=== PATIENT | male | born 1980 | race Caucasian/White ===

== ENCOUNTER 2021-01-01 11:59 | Emergency (ER) | payer BC, SELFPAY ==
--- NOTE | ~2021-01-01 | CT_ITS ---
EXAMINATION: CT abdomen pelvis w con EXAM DATE: 01/01/2021 15:10 INDICATION: Low abdominal pain, dark stool. TECHNIQUE: Spiral CT of the abdomen and pelvis was performed following intravenous injection of 100 m L Omnipaque 350. Axial, coronal and sagittal images of the abdomen and pelvis were reviewed. The do se-length product (DLP) for this examination was 366.73 mGy-cm. The exposure was tailored according to patient size (auto mA exposure control), and iterative reconstruction (ASIR) was used as additiona l dose reduction technique. Comparison is made to prior examination from 07/23/2018. FINDINGS: The liver, spleen, adrenal glands and pancreas are unremarkable. Gallbladder is unremarkab le. No biliary obstruction. Portal and splenic veins are patent. Kidneys enhance symmetrically. T here is no hydronephrosis. The prostate is unremarkable. The bladder is unremarkable. There is no retroperitoneal or pelvic lymphadenopathy. Mild scattered colonic diverticulosis. There is mild inflammation along the rectosigmoid junction, pr obably mild acute uncomplicated diverticulitis. Possible identification of an unremarkable appendix. No pericecal inflammation. The stomach and small bowel are unremarkable. There is expected amount o f colonic stool. No free intraperitoneal gas. The heart is normal in size. There are no pericard ial or pleural effusions. The lung bases are unremarkable. There are no osteoblastic or osteolytic lesions identified. IMPRESSION: 1. Perirectal sigmoid inflammation, probably mild acute uncomplicated diverticulitis. Reviewed, dictated and finalized at location A. IMPRESSION: 1. Perirectal sigmoid inflammation, probably mild acute uncomplicated divertic ulitis.
[2021-01-01 13:41] VITALS: BP 122/78; PULSE 69; RESP 16; TEMP 36.6; O2SAT 100
[2021-01-01 14:09] LABS: Basophils Percent Auto 0.4 % (0.2-1.2); Eosinophils Absolute Auto 0.1 K/mm3 (0-0.3); Eosinophils Percent Auto 1.3 % (0-4.4); Hematocrit 42.5 % (42.0-52.0); Immature Granulocyte Absolute 0.03 K/mm3 (0.00-0.031); Immature Granulocyte Percent A 0.4 % (0-0.5); Lymphocytes Absolute Auto 1.63 K/mm3 (0.9-3.2); Lymphocytes Percent Auto 24.3 % (18.3-44.2); Mean Corpuscular HGB Conc 35.3 g/dl (32-36); Mean Corpuscular Hemoglobin 29.6 pg (26-34); Mean Platelet Volume 9.6 fl (7.4-10.4); Monocytes Absolute Auto 0.7 K/mm3 (0.1-0.6); Monocytes Percent Auto 10.1 % (2.6-8.5); Neutrophils Absolute Auto 4.3 K/mm3 (1.3-6.7); Neutrophils Percent Auto 63.5 % (45.5-73.1); Platelet Count Result 278 k/mm3 (150-375); Red Blood Count 5.06 M/mm3 (4.6-6.20); White Blood Count 6.7 K/mm3 (4.5-10.0)
[2021-01-01 14:19] LABS: Alanine Aminotransferase 29 U/L (4-50); Albumin Level 4.6 g/dL (3.5-5.1); Alkaline Phosphatase 82 U/L (38-126); Anion Gap 10 mmol/L (8-16); Aspartate Amino Transferase 27 U/L (17-59); Bilirubin,Total 1.1 mg/dL (0.2-1.3); Blood Urea Nitrogen 12 mg/dL (9-20); Calcium 9.7 mg/dL (8.4-10.2); Carbon Dioxide 24 mmol/L (22-30); Chloride 104 mmol/L (98-107); Estimated CRCL calculation 100 ml/min; Estimated Glomerular Filt Rate > 60; Glucose 103 mg/dL (75-110); INR 0.9; Lipase 37 U/L (23-300); Partial Thromboplastin Time 29.3 SECONDS (22.3-36.8); Potassium 4.2 mmol/L (3.4-5.0); Prothrombin Time 12.4 Seconds (11.1-14.7); Sodium 138 mmol/L (137-145)
[2021-01-01 14:22] VITALS: BP 125/90; PULSE 70; RESP 16; O2SAT 99
[2021-01-01 14:47] LABS: Add Urine Microscopic? NO; Appearance Urine Clear (Clear); Bilirubin Urine Negative (Negative); Blood Urine Negative (Negative); Color Urine Yellow (Yellow); Glucose Urine UA Negative (Negative); Ketones Urine Negative (Negative); Leukocyte Esterase Ur Negative LEU/UL (Negative); Nitrate Urine Negative (Negative); Protein Urine Negative (Negative); Specific Grav Ur 1.019 (1.001-1.035); Urobilinogen Urine Negative mg/dL (<2.0)
--- NOTE | 2021-01-01 14:55 | ED.GENADULT ---
HPI - General Adult General Chief complaint: GI Bleed Stated complaint: Abd Pain Time Seen by Provider: 01/01/21 14:11 Source: patient History of Present Illness HPI narrative: Patient is a 40 y/o complaining of lower abdominal pain starting 2 days ago. He describes his pain as sharp and cramping and rates it as 7/10. There is no alleviating or exacerbating factor. There is no pain radiation. He has no vomiting, diarrhea or dysuria. Related Data Home Medications Medication Instructions Recorded Confirmed rosuvastatin 20 mg PO DAILY 06/27/19 06/27/19 zolpidem [Ambien] 10 mg PO HS PRN 06/27/19 06/27/19 buspirone [BuSpar] 5 mg PO TID 01/01/21 Allergies Allergy/AdvReac Type Severity Reaction Status Date / Time No Known Allergies Allergy Verified 01/01/21 14:16 Review of Systems Review of Systems: All systems reviewed & are unremarkable except as noted in HPI and below Constitutional: Constitutional: Denies chills, Denies fever(s), Denies headache(s) and Denies weakness Eyes: Eyes: Denies blurry vision ENT: Denies headache(s) and Denies neck pain Cardiovascular: Cardiovascular: Denies chest pain and Denies dyspnea Respiratory: Respiratory: Denies cough and Denies dyspnea Gastrointestinal: Gastrointestinal: Reports abdominal pain, Denies diarrhea, Denies nausea and Denies vomiting Genitourinary: Genitourinary: Denies hematuria and Denies dysuria Musculoskeletal: Musculoskeletal: Denies back pain and Denies neck pain Neurologic: Denies headache(s) and Denies weakness PMFSH Past Medical History Medical History Anxiety Asthma Hyperlipidemia Surgical History Surgical History History of open reduction and internal fixation (ORIF) procedure Right wrist History of shoulder surgery Social History Social History Smoking status: Current every day smoker Alcohol intake: current Gender identity (if verbalized by the patient): Male Exam Const: General: no acute distress and well developed Orientation/consciousness: oriented to person, oriented to place, oriented to time and patient oriented x3 HENMT: Head: normocephalic Ears: external ears normal General nose exam: Normal external nose present Eyes: General: appearance normal, both eyes and all related structures Conjunctivae: conjunctivae normal Neck: Neck: normal visual inspection and full ROM Chest: Chest palpation & inspection: normal inspection of the chest and no tenderness Resp: Effort & Inspection: normal respiratory effort Auscultation: clear to auscultation bilaterally Cardio: Rate: regular rate Rhythm: regular rhythm GI: GI Palp: Yes abdominal tenderness (bilateral lower abdomen) and Yes Soft to palpation Skin: General skin exam: normal color and turgor normal Neuro: General: oriented to person, oriented to place, oriented to time and patient oriented x3 Cognition (Neuro): normal cognition Extrem: General: normal to inspection, full ROM and no pedal edema Psych: Appearance: grossly normal Mental Status: mental status grossly normal Affect: normal affect Course Vital Signs Vital signs: Vital Signs Temperature 36.6 C 01/01/21 13:41 Pulse Rate 69 01/01/21 13:41 Respiratory Rate 16 01/01/21 13:41 Blood Pressure 122/78 01/01/21 13:41 Pulse Oximetry 100 01/01/21 13:41 Temperature 36.6 C 01/01/21 13:41 Pulse Rate 70 01/01/21 14:22 Respiratory Rate 16 01/01/21 14:22 Blood Pressure 125/90 01/01/21 14:22 Pulse Oximetry 99 01/01/21 14:22 Medical Decision Making Vital Signs Vital Signs: Vital Signs Temperature 36.6 C 01/01/21 13:41 Pulse Rate 69 01/01/21 13:41 Respiratory Rate 16 01/01/21 13:41 Blood Pressure 122/78 01/01/21 13:41 Pulse Oximetry 100 01/01/21 13:41 Temperature 36.6 C 01/01/21 13:41 Pu
[2021-01-01] MEDS: metroNIDAZOLE 250 MG TABLET 500 MG PO (18:17)
[2021-01-01] MEDS: CIPROFLOXACIN 500 MG TAB PO (18:18)
--- NOTE | 2021-01-01 18:19 | PC.NURSE ---
1st dose of antibiotics given per home scripts due to pt being unable to fill prescriptions [facility]
== END 2021-01-01 18:19 | disposition home or self-care (01) ==
PROVIDERS: Emergency Provider Emergency Medicine; PCP Internal Medicine
DX: K57.92 Diverticulitis of intestine, part unspecified, without perforation or abscess without bleeding (principal); F41.9 Anxiety disorder, unspecified; J45.909 Unspecified asthma, uncomplicated; F17.200 Nicotine dependence, unspecified, uncomplicated
CPT/HCPCS: 36415; 74177; 80053; 81003; 83690; 85025; 85610; 85730; 86850; 86900; 86901; 99284; A9270; Q9967

== ENCOUNTER → 2021-12-04 00:30 | Outpatient (CLI) | payer BC, SELFPAY ==
[2021-12-04 11:03] LABS: SARS-CoV-2 RNA PCR Negative
== END ==
PROVIDERS: PCP Internal Medicine; Visit Provider Internal Medicine
DX: Z20.822 Contact with and (suspected) exposure to COVID-19 (principal)
CPT/HCPCS: C9803; U0003; U0005

== ENCOUNTER 2022-03-18 14:22 | Emergency (ER) | payer BC, SELFPAY ==
--- NOTE | ~2022-03-18 | XR_ITS ---
EXAMINATION: XR chest 2V Exam Date/Time: 03/18/2022 15:09 CDT HISTORY: LEFT SIDED CP SINCE 1 AM HX ASTHMA/ANXIETY Comparison: 10/25/2010. RESULT: Lines, tubes, and devices: None. Lungs and pleura: Clear. Cardiomediastinal silhouette: Stable. Other: No acute osseous or upper abdominal finding. IMPRESSION: No acute cardiopulmonary process. Reviewed, dictated and finalized at location K.
--- NOTE | 2022-03-18 14:25 | ECG_ITS ---
Measurements Intervals [place] Rate: 77 P: 38 [place]: 137 QRS: 14 QRSD: 94 T: 24 QT: 346 QTc: 392 Interpretive Statements SINUS RHYTHM WITH SINUS ARRHYTHMIA NORMAL ECG NO PREVIOUS ECG AVAILABLE FOR COMPARISON Electronically Signed On 03-18-2022 16:55:38 CDT by Joe Davenport D.O.
[2022-03-18 14:26] VITALS: BP 128/85; PULSE 80; RESP 18; TEMP 36.8; O2SAT 98
[2022-03-18 14:47] LABS: Basophils Percent Auto 0.6 % (0.2-1.2); Eosinophils Absolute Auto 0.1 K/mm3 (0-0.3); Eosinophils Percent Auto 2.6 % (0-4.4); Hematocrit 43.8 % (42.0-52.0); Hemoglobin 15.2 g/dL (14.0-18.0); Immature Granulocyte Absolute 0.04 K/mm3 (0.00-0.031); Immature Granulocyte Percent A 0.8 % (0-0.5); Lymphocytes Absolute Auto 1.63 K/mm3 (0.9-3.2); Lymphocytes Percent Auto 32.9 % (18.3-44.2); Mean Corpuscular HGB Conc 34.7 g/dl (32-36); Mean Corpuscular Volume 86.4 fl (80-100); Mean Platelet Volume 9.5 fl (7.4-10.4); Monocytes Absolute Auto 0.5 K/mm3 (0.1-0.6); Monocytes Percent Auto 9.5 % (2.6-8.5); Neutrophils Absolute Auto 2.7 K/mm3 (1.3-6.7); Neutrophils Percent Auto 53.6 % (45.5-73.1); Platelet Count Result 254 k/mm3 (150-375); Red Blood Count 5.07 M/mm3 (4.6-6.20); Red Cell Distribution Width 12.1 % (11.5-14.5)
[2022-03-18 15:04] LABS: INR 0.9; Prothrombin Time 12.2 Seconds (11.1-14.7)
[2022-03-18 15:05] LABS: Partial Thromboplastin Time 28.2 SECONDS (22.3-36.8)
[2022-03-18 15:20] LABS: Alanine Aminotransferase 24 U/L (6-50); Albumin Level 4.6 g/dL (3.5-5.1); Alkaline Phosphatase 97 U/L (38-126); Anion Gap 14 mmol/L (8-16); Aspartate Amino Transferase 21 U/L (17-59); Bilirubin,Total 0.5 mg/dL (0.2-1.3); Blood Urea Nitrogen 15 mg/dL (9-20); Calcium 8.9 mg/dL (8.4-10.2); Carbon Dioxide 23 mmol/L (22-30); Chloride 103 mmol/L (98-107); Estimated CRCL calculation 99 ml/min; Estimated Glomerular Filt Rate > 60; Glucose 108 mg/dL (65-110); Lipase 61 U/L (23-300); Potassium 4.1 mmol/L (3.4-5.0); Sodium 140 mmol/L (137-145)
[2022-03-18 15:23] LABS: Troponin I < 0.012 ng/mL (0.000-0.034)
--- NOTE | 2022-03-18 17:51 | ED.CHESTPAIN ---
HPI - Chest Pain General Chief Complaint: Chest Pain Stated Complaint: chest pain Time Seen by Provider: 03/18/22 17:32 Source: RN notes reviewed History of Present Illness HPI narrative: Patient presents emergency room from home for chest pain. Patient states pain began approximately 1 AM this morning while he is working the pain is located in the left lower chest and does not radiate described as sharp and stabbing in nature nothing makes pain better or worse. He denies any fevers or chills shortness of breath abdominal pain nausea vomiting diarrhea or any other symptoms. States he not take anything for the pain at home Related Data Home Medications Medication Instructions Recorded Confirmed trazodone 50 mg tablet mg 03/18/22 zolpidem 10 mg tablet mg 03/18/22 Allergies Allergy/AdvReac Type Severity Reaction Status Date / Time No Known Allergies Allergy Verified 03/18/22 19:05 Review of Systems Review of Systems: Gen.: Denies fevers or chills ENT: Denies congestion Respiratory: Denies shortness of breath or cough CV: See HPI GI: Denies abdominal pain nausea, emesis or diarrhea Musculoskeletal: Denies back pain or muscle pain Neuro: Denies numbness, tingling, weakness or focal weakness Skin: Denies rash Except as documented, all other systems reviewed and negative PMFSH Past Medical History Medical History Anxiety Asthma Hyperlipidemia Surgical History Surgical History History of open reduction and internal fixation (ORIF) procedure Right wrist History of shoulder surgery Social History Social History Smoking status: Current every day smoker Alcohol intake: current Gender identity (if verbalized by the patient): Male Exam Narrative: APPEARANCE: No acute distress, nontoxic, resting in bed EYES: EOMI HEENT: Normocephalic, atraumatic, OMM RESPIRATORY: No respiratory distress Clear to auscultation bilaterally with no rhonchi wheezing or rales. CARDIOVASCULAR: Regular rate and rhythm without murmurs rubs or gallops. Chest: Tender to palpation with point tenderness over the left lower anterior chest wall just to the left of the sternum and regions of ribs 7 and 8 ABDOMINAL: Soft, nontender, nondistended, no rebound or guarding MUSCULOSKELETAl: Moves all extremities. No clubbing, cyanosis or edema. NEURO: Awake and alert. Following commands, speech normal, no focal deficits SKIN:: Warm, dry. No rashes lesions or abrasions PSYCHIATRIC: Normal affect/mood, Course Course Emergency Course: Patient given Toradol with some improvement of pain and given GI cocktail notes improvement in pain. Patient did state that he did feel mildly short of breath after GI cocktail and he has a history of asthma given breathing treatment lungs clear to station bilaterally Discussed with patient results of workup and diagnosis. Discussed need for follow-up with primary care, proper use of medication, and reasons to return to the emergency department. Patient understands and agrees to current treatment plan Vital Signs Vital signs: Vital Signs Temperature 98.2 F 03/18/22 14:26 Pulse Rate 80 03/18/22 14:26 Respiratory Rate 18 03/18/22 14:26 Blood Pressure 128/85 03/18/22 14:26 Pulse Oximetry 98 03/18/22 14:26 Oxygen Delivery Room Air 03/18/22 14:26 Temperature 98.2 F 03/18/22 14:26 Pulse Rate 78 03/18/22 19:59 Respiratory Rate 18 03/18/22 19:59 Blood Pressure 124/85 03/18/22 18:01 Pulse Oximetry 99 03/18/22 18:01 Oxygen Delivery Room Air 03/18/22 14:26 MDM - Chest Pain MDM Narrative Medical decision making narrative: Patient's EKGs and labs are without significant high risk changes. Cardiac risk factors reviewed. Patient is felt likely low risk for ACS and reasonable for further risk stratification testing
[2022-03-18 18:01] VITALS: BP 124/85; PULSE 67; RESP 19; O2SAT 99
[2022-03-18] MEDS: KETOROLAC 30 MG/ML VIAL (*BKC) IV PUSH (18:05)
[2022-03-18 18:18] LABS: D Dimer < 0.27 ug/mL (<0.48)
[2022-03-18 18:40] LABS: Troponin I < 0.012 ng/mL (0.000-0.034)
[2022-03-18] MEDS: IPRATROPIUM BR 0.02% INH SOLN 0.5 MG/2.5 ML VIAL INHALATION (19:48)
[2022-03-18] MEDS: ALBUTEROL SULFATE NEB 2.5 MG/3 ML INH 5 MG INHALATION (19:48)
[2022-03-18 19:49] VITALS: PULSE 67; RESP 17
[2022-03-18 19:59] VITALS: PULSE 78; RESP 18
[2022-03-18 20:45] VITALS: BP 115/79; PULSE 73; RESP 15; O2SAT 100
== END 2022-03-18 20:58 | disposition home or self-care (01) ==
PROVIDERS: Emergency Provider Emergency Medicine; PCP Internal Medicine
DX: R07.89 Other chest pain (principal); J45.909 Unspecified asthma, uncomplicated; E78.5 Hyperlipidemia, unspecified; F41.9 Anxiety disorder, unspecified; F17.200 Nicotine dependence, unspecified, uncomplicated
CPT/HCPCS: 36415; 71046; 80053; 83690; 84484; 85025; 85380; 85610; 85730; 93005; 94640; 96374; 99284; A9270; J1885

== ENCOUNTER 2024-09-07 10:46 | Outpatient (CLI) | payer BC, SELFPAY ==
--- NOTE | ~2024-09-07 | US_ITS ---
EXAMINATION: US retroperitoneal comp DATE: 09/07/2024 11:02 INDICATION: Chronic kidney disease, stage 1 TECHNIQUE: Multiple grayscale and Doppler ultrasound images of the kidneys were obtained. COMPARISON: 05/03/2024 FINDINGS: The right kidney measures 11.2 x 6.2 x 7.1 cm. The left kidney measures 11.7 x 6.0 x 6.7 cm. The kidn eys demonstrate normal parenchymal echogenicity. No mass. There is no hydronephrosis. The bladder is normal. IMPRESSION: Unremarkable renal sonogram findings. Reviewed, dictated and finalized at location K.
== END 2024-09-07 10:47 | disposition home or self-care (01) ==
LOC: MICIMG 10:46
PROVIDERS: PCP Internal Medicine; Visit Provider Specialist
DX: N18.1 Chronic kidney disease, stage 1 (principal)
CPT/HCPCS: 76770

== ENCOUNTER 2024-09-08 12:35 | Emergency (ER) | payer BC, SELFPAY ==
--- NOTE | ~2024-09-08 | XR_ITS ---
EXAMINATION: XR chest 1V portable DATE: 09/08/2024 13:57 INDICATION: Right upper quadrant abdominal pain. TECHNIQUE: A single frontal view of the chest was obtained. COMPARISON: Chest 2 views 03/18/2022 FINDINGS: There is no pneumonia, pleural effusion, or pneumothorax. The heart size is normal. IMPRESSION: 1. No acute cardiopulmonary disease. Reviewed, dictated and finalized at location B.
--- NOTE | ~2024-09-08 | CT_ITS ---
EXAMINATION: CT abdomen pelvis w con DATE: 09/08/2024 14:22 INDICATION: Right upper quadrant abdominal pain. TECHNIQUE: Computed tomography (CT) of the abdomen and pelvis was performed with 100 mL Omnipaque 350 intravenous contrast. Automated exposure control and iterative reconstruction technique were employe d. The dose-length product was 370.30 mGy-cm. COMPARISON: CT abdomen and pelvis 05/03/2024 FINDINGS: The visualized portions of the lung bases demonstrate mild atelectasis. No pleural effusion . The heart size is normal. No pericardial effusion. The liver, gallbladder, spleen, pancreas, adrena l glands, and kidneys are normal. There are no dilated loops of bowel. The appendix is normal. There are no pathologically enlarged lymph nodes. There is no free intraperitoneal fluid. There is mild tho racic and lumbar spondylosis. IMPRESSION: 1. No etiology for the patient's symptoms. Reviewed, dictated and finalized at location B.
[2024-09-08 12:41] VITALS: BP 121/81; PULSE 76; RESP 18; TEMP 36.2; O2SAT 97
--- NOTE | 2024-09-08 13:41 | ECG_ITS ---
Test Date: 2024-09-08 13:50:14 Measurements Intervals [place] Rate: 62 P: 40 [place]: 147 QRS: 14 QRSD: 93 T: 17 QT: 375 QTc: 382 Interpretive Statements SINUS RHYTHM No previous ECG available for comparison Electronically Signed On 09-08-2024 13:54:00 CDT by Janki Jenkins M.D.
[2024-09-08] MEDS: SODIUM CHLORIDE 0.9% IV 1,000 ML 999 ML IV CONT (13:51)
--- OUTSIDE RECORDS SUMMARY | 2024-09-08 13:51 | XMS_ITS | Patient Health Summary ---
Author Organization [facility] Address [address] [address] Care Team Providers Care Professor Computer Science Name Role Phone Justino Dye MD Primary Care Provider Note from [facility],non-owned Affiliates and Associated Physician Practices is amultiple site organization consisting of ambulatory clinics and hospital sitesin [place], [place], [place] and [place]. This disclosure is being madepursuant to the Care Everywhere program and may not contain all information available regarding this patient. Last updated 18.[facility] Allergies No known active allergies Medications * Be aware that medications may not be up to date on this document. Alwaysverify current medications with the patient. * benzonatate (TESSALON) 100 MG capsule(Started 08/06/2017) Take 1 capsule by mouth 3 times daily as needed for Cough Reasons: Cough * Albuterol Sulfate (PROAIR HFA IN) Social History Tobacco Use Types Packs/Day Years Used Date Smoking Tobacco: Never Smokeless Tobacco: Never Sex and Gender Information Value Date Recorded Sex Assigned at Not on file Gender Identity Not on file Sexual Orientation Not on file Last Filed Vital Signs Vital Sign Reading Time Taken Comments Blood Pressure 136/78 08/06/2017 12:04 PM NUCLEAR WASTE PROCESS OPERATOR Pulse 118 08/06/2017 12:04 PM NUCLEAR WASTE PROCESS OPERATOR Temperature 38.1 C (100.5 F) 08/06/2017 12:04 PM NUCLEAR WASTE PROCESS OPERATOR Respiratory Rate 18 08/06/2017 12:04 PM NUCLEAR WASTE PROCESS OPERATOR Oxygen Saturation 96% 08/06/2017 12:04 PM NUCLEAR WASTE PROCESS OPERATOR Inhaled Oxygen Concentration - - Weight 68 kg (150 lb) 08/06/2017 12:04 PM NUCLEAR WASTE PROCESS OPERATOR Height 170.2 cm (5' 7 ) 08/06/2017 12:04 PM NUCLEAR WASTE PROCESS OPERATOR Body Mass Index 23.49 08/06/2017 12:04 PM NUCLEAR WASTE PROCESS OPERATOR Procedures * INFLUENZA A+B - POINT OF CARE (AMB)(Performed 08/06/2017) Performed for Influenza Results * (ABNORMAL) INFLUENZA A+B - POINT OF CARE (AMB) (08/06/2017) Influenza A Antigen Rapid Negative Negative Influenza B Antigen Rapid Positive(A) Negative Influenza Internal Control yes NEGATIVE - POSITIVE Influenza Lot Number [id number] Influenza Expiration Date 04/21/19 Other NASOPHARYNGEAL SWAB / Unknown 08/06/2017 Stephanie Mcgrath ELECTRIC FURNACE OPERATOR-TUNNEL ELASTIC OPERATOR [facility] - POINT OF CA RE ORDERABLES Care Teams Professor Computer Science Relationship Specialty Start Date End Date Justino Dye MD [address] [address] PCP - General Internal Medicine 08/06/17
--- OUTSIDE RECORDS SUMMARY | 2024-09-08 13:52 | XMS_ITS | Clinical Summary ---
Author Organization [facility] Address [address] [place] [address] Care Team Providers Care Traffic Analysis Technician Name Role Phone Justino Dye MD Primary Care Provider Source Comments [facility],non-owned Affiliates and Associated Physician Practices is amultiple site organization consisting of ambulatory clinics and hospital sitesin [place], [place], [place] and [place]. This disclosure is being madepursuant to the Care Everywhere program and may not contain all information available regarding this patient. Last updated 18.[facility] Allergies No known active allergies Medications * Be aware that medications may not be up to date on this document. Alwaysverify current medications with the patient. Medication Sig Dispensed Refills Start Date End Date Status benzonatate (TESSALON) 100 MG capsuleIndications:C ough Take 1 capsule by mouth 3 times daily as needed for Cough Reasons: Cough 30 capsule 08/06/2017 Active Albuterol Sulfate (PROAIR HFA IN) Active Social History Tobacco Use Types Packs/Day Years Used Date Smoking Tobacco: Never Smokeless Tobacco: Never Sex and Gender Information Value Date Recorded Sex Assigned at Not on file Gender Identity Not on file Sexual Orientation Not on file Last Filed Vital Signs Vital Sign Reading Time Taken Comments Blood Pressure 136/78 08/06/2017 12:04 PM PROFESSOR OF FINANCE Pulse 118 08/06/2017 12:04 PM PROFESSOR OF FINANCE Temperature 38.1 C (100.5 F) 08/06/2017 12:04 PM PROFESSOR OF FINANCE Respiratory Rate 18 08/06/2017 12:04 PM PROFESSOR OF FINANCE Oxygen Saturation 96% 08/06/2017 12:04 PM PROFESSOR OF FINANCE Inhaled Oxygen Concentration - - Weight 68 kg (150 lb) 08/06/2017 12:04 PM PROFESSOR OF FINANCE Height 170.2 cm (5' 7 ) 08/06/2017 12:04 PM PROFESSOR OF FINANCE Body Mass Index 23.49 08/06/2017 12:04 PM PROFESSOR OF FINANCE Plan of Treatment Health Maintenance Due Date Last Done Comments LIPID TESTING 1980 HIV SCREENING 09/20/1995 HEPATITIS C SCREENING 09/15/1998 DTAP/TDAP/TD VACCINES (1 - Tdap) 09/20/1999 HEPATITIS B VACCINE (1 of 3 - 19+ 3-dose series) 09/20/1999 COVID-19 VACCINE (1 - 2023-2 5 season) 2024 INFLUENZA VACCINE (#1) 2024 DEPRESSION SCREENING 06/30/2024 ZOSTER VACCINE (1 of 2) 2030 HIB VACCINE Aged Out No longer eligi ble based on patient's age to complete this topic HPV VACCINE Aged Out No longer eligi ble based on patient's age to complete this topic MENINGOCOCCAL (Group B) VACC INE SHARED DECISION-MAKING Aged Out No longer eligibl e based on patient's age to complete this topic MENINGOCOCCAL GROUPS A/C/Y/W VACCINE Aged Out No longer eligible b ased on patient's age to complete this topic PNEUMOCOCCAL VACCINE Aged Out No long er eligible based on patient's age to complete this topic Care Teams Traffic Analysis Technician Relationship Specialty Start Date End Date Justino Dye MD [address] [facility] [address] [place] [address] PCP - General Internal Medicine 08/06/17
--- OUTSIDE RECORDS SUMMARY | 2024-09-08 13:52 | XMS_ITS | Patient Health Record ---
Author Organization [facility] Address [address] [place] [address] Care Team Providers Care Parking Meter Attendant Name Role Phone Radu Juan Diego Unavailable [phone] REASON FOR REFERRAL No Information PROBLEMS Problem Type ICD Code Onset Dates Problem Status W/U Status Risk SNOMED Code Notes Problem Hyperlipidemia, unspecified (E78.5) Active confirmed Hyperlipidemia (37883528) Problem Obstructive sleep apnea (adult) (pediatric) (G47.33) Active confirmed Obstructive sle ep apnea syndrome (disorder) (30197841) Problem Chronic kidney disease, stage 1 (N18.1) Active confirmed Chronic kidney disease stage 1 (317308659) Problem Hyperglycemia, unspecified (R73.9) Active confirmed Hyperglycemia (05493368) Problem Other proteinuria (R80.8) Active confirmed Proteinuria (06452174) Problem Asthma due to environmental allergies (J45.909) Active confirmed Asthma without status asthmaticus (25192395) Encounters Encounter Location Date Provider Diagnosis [facility] [address] [facility] [address] [place] [address] 08/27/2024 Juan Diego Lovelace Chronic kidney disease, stage 1 N18.1 ; Obstructive sleep apnea (adult) (pediatric) G47.33 ; Other proteinuria R80.8 ; Hyperlipidemia, unspecified E78.5 ; Hyperglycemia, unspecified R73.9 and Asthma due to environmental allergies J45.909 ASSESSMENTS Encounter Date Diagnosis Assessment Notes Treatment Notes Treatment Clinical Notes Section Notes 08/27/2024 Chronic kidney disease, stage 1 (ICD-10 - N18.1) 08/27/2024 Obstructive sleep apnea (adult) (pediatric) (ICD-10 - G47.33) 08/27/2024 Other proteinuria (ICD-10 - R80.8) 08/27/2024 Hyperlipidemia, unspecified (ICD-10 - E78.5) 08/27/2024 Hyperglycemia, unspecified (ICD-10 - R73.9) 08/27/2024 Asthma due to environmental allergies (ICD-10 - J45.909) PLAN OF TREATMENT Next Appt Details Provider Name:Juan Diego Lovelace , 09/17/2024 03:30:00 PM, [address], [facility] [address], [place], [address],
--- OUTSIDE RECORDS SUMMARY | 2024-09-08 13:52 | XMS_ITS | Referral Summary ---
Author Organization [facility] Address [address] [facility] [place] [address] Care Team Providers Care Web Art Director Name Role Phone Justino Dye MD Primary Care Provider Source Comments [facility],non-owned Affiliates and Associated Physician Practices is amultiple site organization consisting of ambulatory clinics and hospital sitesin [place], [place], [place]. This disclosure is being madepursuant to the Care Everywhere program and may not contain all information available regarding this patient. Last updated 18.[facility] Allergies No known active allergies Medications * [...] Comments Blood Pressure 136/78 08/06/2017 12:04 PM ROD MACHINE OPERATOR Pulse 118 08/06/2017 12:04 PM ROD MACHINE OPERATOR Temperature 38.1 C (100.5 F) 08/06/2017 12:04 PM ROD MACHINE OPERATOR Respiratory Rate 18 08/06/2017 12:04 PM ROD MACHINE OPERATOR Oxygen Saturation 96% 08/06/2017 12:04 PM ROD MACHINE OPERATOR Inhaled Oxygen Concentration - - Weight 68 kg (150 lb) 08/06/2017 12:04 PM ROD MACHINE OPERATOR Height 170.2 cm (5' 7 ) 08/06/2017 12:04 PM ROD MACHINE OPERATOR Body Mass Index 23.49 08/06/2017 12:04 PM ROD MACHINE OPERATOR Plan of Treatment Not on file Care Teams Web Art Director Relationship Specialty Start Date End Date Justino Dye MD [address] [facility] [address] [place] [address] PCP - General Internal Medicine 08/06/17
--- OUTSIDE RECORDS SUMMARY | 2024-09-08 13:52 | XMS_ITS | Data Portability ---
Author Organization [place] - [facility] [employer], Main Office Address [address] [place] [address] Care Team Providers Care Pot Sander Name Role Phone JUSTINO DYE Primary Care Provider [phone] JUSTINO DYE Referring Provider Assessment Encounter Date Assessment Date Assessment LastModified by Organization Details LastModified Time 07/02/2023 07/02/2023 08/07/2022: TSH: WNL CMP: Gluc 106 CBC: WNL 02/06/2023: Gluc 103 06/13/2023: GEORGE: Neg ccp antibodies/ESR/RF/ CRP: Neg A1C 5.3 Gluc 107 Lipids/CBC: WNL Not available 07/02/2023 16:48:15 09/08/2023 09/08/2023 Assessment: Mild persistent asthma Mild OSAHS, AHI = 13 Plan: The following were reviewed and explained to the patient: Chest 2 views 07/20/21 wnl Chest 2 views 03/18/22 wnl Lab data 09/19/22 multiple environmental allergies PFT 10/15/22 FEV1 3.11 L (89%), BD 550 mL = 22% [facility] home sleep study 02/03/23 AHI = 13, 02/03/23 Advised to continue not to smoke. General information on bronchial asthma was covered. Patient will monitor peak flow daily at a set time and again when symptoms of chest tightness, cough, dyspnea or wheezing occur. Patient will bring peak flow record to subsequent visits. The color of a traffic light will guide the patient's use of asthma medications: (1) Green means Go Zone. Peak flow: above 80% of personal best. Symptoms: Breathing is good, no cough or wheeze present, patient sleeps through the night and can work and play. Plan: Patient will continue the use of preventative medicine. (2) Yellow means Caution Zone. Peak flow: between 50-80% of personal best. Symptoms: Presence of first signs of a cold, exposure to known trigger, mild wheeze, tight chest and coughing especially night. Plan: Patient will add quick-relief medicine to preventative medicine. (3) Red means Danger Zone. Peak flow: below 50% of personal best. Symptoms: Asthma is getting worse quickly and medicine is not helping, breathing is hard and fast, nose opens widely when breathing, ribs showing when breathing, and patient cannot speak in full sentences. Plan: Patient will get help from a physician immediately. Continue Breo Ellipta 100/25 mcg 1 inhalation daily. Gargle after use. Continue Albuterol HFA as needed. The patient does not know how to accurately administer the inhalers. Today, the patient was shown how to take these medications. The proper technique for delivering these medications was instructed. The patient expressed a clear understanding and demonstrated back how to use these medications. Without the proper technique, the patient will not reap the benefits of these medications as the contents will not reach the lower airways as intended to be. Adherence to therapy is advocated. Nonadherence may lead to treatment failure, further progression of the condition, and other complications. Hospitals admissions are often the result of individuals not taking prescription medications accurately. Alternatively, greater adherence to medication regimens have shown to lower rates of hospitalization and decrease total medical costs in patients with chronic medical conditions. We discussed with the patient the impact of weight on: Sleep disordered breathing Mixed hyperlipidemia MERVIN We discussed with the patient the benefit of therapy on: Sleep disordered breathing Mood disorders Rhinitis MERVIN As an alternative, Mandibular Advancement Device (MAD) or Mandibular Advancement Split (MAS) therapy is discussed. Patient's records will be sent to the specialist of choice. Factors that may negatively impact MAD/MAS candidacy were discussed as follows: history of cancer in head/neck/mouth, history of radiation treatment, gum disease, use of dentures, presence of eight or less teeth in upper and lower jaw, decay or broken teeth/fillings, jaw joint pain or clicking/popping, ear problems such as congestion/tinnitu s/pain/vertigo, neck/back/facial pain, frequent headaches, teeth grinding or teeth clenching, etc. Patient needs to have a sleep study with MAD in place to determine the efficacy of the MAD. Educated the patient on sleep hygiene measures. Relaxing rituals to rest easy, understanding foods with positive and negative impact on sleep, creating a peaceful sleep environment, timing of exercise, using herbal sleep aids, and practicing sleep-friendly meditation were covered. To determine how much sleep is needed, the patient will assess where he falls on the spectrum, examine what lifestyle factors such as work schedules and stress are affecting the quality and quantity of sleep. In general, adults need 7-9 hours of sleep. Educated the patient regarding foods that promote sleep. These include but are not limited to cherries, bananas, toast, oatmeal, and warm milk. Educated the patient regarding foods and drinks to avoid before bedtime. These include but are not limited to aged cheese, chocolate, spicy foods, tomato-based sauces, soy, ginseng tea and processed meat. Advocated influenza vaccination annually and pneumonia vaccination in 2045. Advocated weight loss through diet and exercise. Patient's ideal body weight according to height and gender is up to 160 lbs. Encouraged patient to adjust caloric intake to maintain/achieve ideal body weight, emphasizing on fruits, vegetables, whole grains, and fat-free or low-fat products. These include lean meats, poultry, fish, beans, eggs, and nuts and foods that are low in saturated fats, trans-fats, cholesterol, salt (sodium), and glycemic index. Stressed the importance of regular exercise up to the patient's capacity limits. In this case, we recommend 20 min daily walking, 2 days a week of resistance training. Patient to monitor BP daily and bring records to PCP for further management. Follow-up: 3 months, November 2023 [email or web address] Not available 09/08/2023 15:46:29 12/01/2023 12/01/2023 Assessment: Mild ACO Mild OSAHS, AHI = 13 Plan: The following were reviewed and explained to the patient: Chest 2 views 07/20/21 wnl Chest 2 views 03/18/22 wnl Lab data 09/19/22 multiple environmental allergies PFT 10/15/22 FEV1 3.11 L (89%), BD 550 mL = 22% PFT 12/01/23 FEV1 3.27 L (93%), BD -140 mL = -4% [facility] home sleep study without MAD 02/03/23 AHI = 13 [facility] home sleep study with MAD 10/24/23 AHI = 2, supine AHI = 4 Advised to continue not to smoke. General information on bronchial asthma was covered. Patient will monitor peak flow daily at a set time and again when symptoms of chest tightness, cough, dyspnea or wheezing occur. Patient will bring peak flow record to subsequent visits. The color of a traffic light will guide the patient's use of asthma medications: (1) Green means Go Zone. Peak flow: above 80% of personal best. Symptoms: Breathing is good, no cough or wheeze present, patient sleeps through the night and can work and play. Plan: Patient will continue the use of preventative medicine. (2) Yellow means Caution Zone. Peak flow: between 50-80% of personal best. Symptoms: Presence of first signs of a cold, exposure to known trigger, mild wheeze, tight chest and coughing especially night. Plan: Patient will add quick-relief medicine to preventative medicine. (3) Red means Danger Zone. Peak flow: below 50% of personal best. Symptoms: Asthma is getting worse quickly and medicine is not helping, breathing is hard and fast, nose opens widely when breathing, ribs showing when breathing, and patient cannot speak in full sentences. Plan: Patient will get help from a physician immediately. Continue Breo Ellipta 100/25 mcg 1 inhalation daily. Gargle after use. Continue Albuterol HFA as needed. The patient does not know how to accurately administer the inhalers. Today, the patient was shown how to take these medications. The proper technique for delivering these medications was instructed. The patient expressed a clear understanding and demonstrated back how to use these medications. Without the proper technique, the patient will not reap the benefits of these medications as the contents will not reach the lower airways as intended to be. Adherence to therapy is advocated. Nonadherence may lead to treatment failure, further progression of the condition, and other complications. Hospitals admissions are often the result of individuals not taking prescription medications accurately. Alternatively, greater adherence to medication regimens have shown to lower rates of hospitalization and decrease total medical costs in patients with chronic medical conditions. We discussed with the patient the impact of weight on: Sleep disordered breathing Mixed hyperlipidemia MERVIN We discussed with the patient the benefit of therapy on: Sleep disordered breathing Mood disorders Rhinitis MERVIN Patient will continue with MAD therapy for HERNÁN. Educated the patient on sleep hygiene measures. Relaxing rituals to rest easy, understanding foods with positive and negative impact on sleep, creating a peaceful sleep environment, timing of exercise, using herbal sleep aids, and practicing sleep-friendly meditation were covered. To determine how much sleep is needed, the patient will assess where he falls on the spectrum, examine what lifestyle factors such as work schedules and stress are affecting the quality and quantity of sleep. In general, adults need 7-9 hours of sleep. Educated the patient regarding foods that promote sleep. These include but are not limited to cherries, bananas, toast, oatmeal, and warm milk. Educated the patient regarding foods and drinks to avoid before bedtime. These include but are not limited to aged cheese, chocolate, spicy foods, tomato-based sauces, soy, ginseng tea and processed meat. Advocated influenza vaccination annually and pneumonia vaccination in 2045. Advocated weight loss through diet and exercise. Patient's ideal body weight according to height and gender is up to 160 lbs. Encouraged patient to adjust caloric intake to maintain/achieve ideal body weight, emphasizing on fruits, vegetables, whole grains, and fat-free or low-fat products. These include lean meats, poultry, fish, beans, eggs, and nuts and foods that are low in saturated fats, trans-fats, cholesterol, salt (sodium), and glycemic index. Stressed the importance of regular exercise up to the patient's capacity limits. In this case, we recommend 20 min daily walking, 2 days a week of resistance training. Patient to monitor BP daily and bring records to PCP for further management. Follow-up: 1 year, November 2024 Not available 12/01/2023 16:58:41 01/15/2024 01/15/2024 08/07/2022: TSH: WNL CMP: Gluc 106 CBC: WN 02/06/2023: Gluc 103 06/13/2023: GEORGE: Neg ccp antibodies/ESR/RF/ CRP: Neg A1C 5.3 Gluc 107 Lipids/CBC: WN 01/09/2024: A1C 5.4 Gluc 103 Not available 01/13/2024 11:51:33 08/12/2024 08/12/2024 08/07/2022: TSH: WNL CMP: Gluc 106 CBC: WNL 02/06/2023: Gluc 103 06/13/2023: GEORGE: Neg ccp antibodies/ESR/RF/ CRP: Neg A1C 5.3 Gluc 107 Lipids/CBC: WNL 01/09/2024: A1C 5.4 Gluc 103 08/04/2024: Urine micro alb 17.8 Gluc 106, BUN 20 Not available 08/12/2024 14:46:16 Plan of Treatment Reminders Order Date Submit Date Provider Last Modified By Organization Details Last Modified Time Details Appointments Any 15 2024 10:00A M Cesar Mensah MD Not available Not available Not available Any 15 2024 10:00A M Justino sexton MD Not available Not available Not available Lab microalbu min, urine [address] (Lab), [address] [place], [address], 08/12/2024 14:48:25 glycohemo globin, total, blood [address] (Lab), [address] [place], [address], 08/12/2024 14:48:26 lipid panel, serum [address] (Lab), [address] [place], [address], 08/12/2024 14:48:24 CBC w/ auto diff [address] (Lab), [address] [place], [address], 08/12/2024 14:48:25 CMP, serum or plasma [address] (Lab), [address] [place], [address], 08/12/2024 14:48:25 TSH, serum or plasma [address] (Lab), [address] [place], [address], 08/12/2024 14:48:25 microalbu min, urine [address] (Lab), [address] [place], [address], 07/14/2024 09:58:21 glycohemo globin, total, blood [address] (Lab), [address] [place], [address], 07/14/2024 09:58:22 lipid panel, serum [address] (Lab), [address] [place], [address], 07/14/2024 09:58:21 CBC w/ auto diff [address] (Lab), [address] [place], [address], 07/14/2024 09:58:21 CMP, serum or plasma [address] (Lab), [address] [place], [address], 07/14/2024 09:58:21 TSH, serum or plasma [address] (Lab), [address] [place], [address], 07/14/2024 09:58:21 microalbu min, urine 2023 024 MARITA [facility] (Lab), [address] [place], [address], 01/09/2024 12:42:25 glycohemo globin, total, blood 2023 024 [facility] (Lab), [address] [place], [address], 01/09/2024 13:09:32 lipid panel, serum 2023 024 [facility] (Lab), [address] [place], [address], 01/09/2024 12:34:50 CBC w/ auto diff 2023 024 [facility] (Lab), [address] [place], [address], 01/09/2024 12:09:58 CMP, serum or plasma 2023 024 [facility] (Lab), [address] [place], [address], 01/09/2024 12:34:55 TSH, serum or plasma 2023 024 [facility] (Lab), [address] [place], [address], 01/09/2024 13:14:55 Referral nephrolog ist referral - Please call patient to schedule an appointme nt. Thank you 2024 025 [facility] (Nephrology, [address], [address], [place], [address], 08/19/2024 11:02:54 Procedures None recorded. Surgeries None recorded. Imaging polysomno gram, diagnosti c, 6 yrs or older - diagnosti c with MAD in place; approved [id number] 09/24/23-[address] [place] [address] [facility], [address] [place], [address], 10/15/2023 08:34:59 Medication Orders zolpidem 10 mg tablet 2024 025 [id number], [address], [place], [address], 08/12/2024 14:48:04 albuterol sulfate HFA 90 mcg/actua tion aerosol inhaler 2023 024 [facility]/Pharmacy #[id number], [address], [place], [address], 12/01/2023 12:09:31 Breo Ellipta 100 mcg-25 mcg/dose powder for inhalatio n 2023 024 [facility]/Pharmacy #[id number], [address], [place], [address], 12/01/2023 12:09:32 albuterol sulfate HFA 90 mcg/actua tion aerosol inhaler 2023 024 [facility]/Pharmacy #[id number], [address], [place], [address], 09/08/2023 15:51:07 Breo Ellipta 100 mcg-25 mcg/dose powder for inhalatio n 2023 024 [facility]/Pharmacy #[id number], [address], [place], [address], 09/08/2023 15:51:07 Zyrtec 10 mg tablet 2023 024 chucho [facility]/Pharmacy #[id number], [address], [place], [address], 01/15/2024 11:00:48 zolpidem 10 mg tablet 2023 024 chiquita [facility]/Pharmacy #[id number], [address], [place], [address], 07/02/2023 16:14:37 Patient TargetsNo targets recorded. Patient Instructions Encounter Date Encounter Id Patient Instructions Last Modified By Organization Details Last Modified Time 09/08/2023 [id number] complete PFT w/ post bronchodilator spirometry* - no auth required [email or web address] Not available 11/06/2023 09:00:46 12/01/2023 [id number] complete PFT w/ post bronchodilator spirometry* - no auth required Not available 12/01/2023 12:09:28 08/12/2024 [id number] diabetic eye exam* [email or web address] Not avail able 08/12/2024 14:48:26 Reason for Referral Stars Coordinator Referral for Pr oteinuria Please call patient to schedule an appointment. Thank you Referring Physician: Justino Dye, Internal Medicine, Encounter Date: 08/12/2024 Results Created Date Observation Date Name Description Value Unit Range Abnormal Flag Note LastModifiedBy Organization Detail LastModifiedTime 06/13/2006/13/2023 CBC/C OMPLE TE BLD COUNT W/DIF F white blood cells 4.4 x10'3 /uL 4.2-10 .8 Not Available [facility] (Lab) [address] [place], [address], 06/13/2023 12:37:38 06/13/20 23 06/13/2023 CBC/C OMPLE TE BLD COUNT W/DIF F red blood cells 5.25 x10'6 /uL 4.10-5 .80 Not Available [facility] (Lab) [address] [place], [address], 06/13/2023 12:37:38 06/13/20 23 06/13/2023 CBC/C OMPLE TE BLD COUNT W/DIF F hemoglobin 15.6 g/dL 13.2-1 7.0 Not Available [facility] (Lab) [address] [place], [address], 06/13/2023 12:37:38 06/13/20 23 06/13/2023 CBC/C OMPLE TE BLD COUNT W/DIF F hematocrit 46.1 % 39.3-5 0.0 Not Available [facility] (Lab) [address] [place], [address], 06/13/2023 12:37:38 06/13/20 23 06/13/2023 CBC/C OMPLE TE BLD COUNT W/DIF F mean red cell volume 87.8 fL 80.0-9 7.0 Not Available [facility] (Lab) [address] [place], [address], 06/13/2023 12:37:38 06/13/20 23 06/13/2023 CBC/C OMPLE TE BLD COUNT W/DIF F mean red cell hemoglobin 29.7 pg 27.0-3 3.0 Not Available [facility] (Lab) [address] [place], [address], 06/13/2023 12:37:38 06/13/20 23 06/13/2023 CBC/C OMPLE TE BLD COUNT W/DIF F mean RBC HGB concentratio n 33.8 g/dL 31.0-3 6.0 Not Available [facility] (Lab) [address] [place], [address], 06/13/2023 12:37:38 06/13/20 23 06/13/2023 CBC/C OMPLE TE BLD COUNT W/DIF F red cell distribution width 11.9 % 11.8-1 5.5 Not Available [facility] (Lab) [address] [place], [address], 06/13/2023 12:37:38 06/13/20 23 06/13/2023 CBC/C OMPLE TE BLD COUNT W/DIF F platelets 280 x10'3 /uL 150-40 0 Not Available [facility] (Lab) [address] [place], [address], 06/13/2023 12:37:38 06/13/20 23 06/13/2023 CBC/C OMPLE TE BLD COUNT W/DIF F mean platelet volume 10.2 fL 9.0-12 .4 Not Available [facility] (Lab) [address] [place], [address], 06/13/2023 12:37:38 06/13/20 23 06/13/2023 CBC/C OMPLE TE BLD COUNT W/DIF F neutrophils 57.3 % 39.0-7 2.0 Not Available [facility] (Lab) [address] [place], [address], 06/13/2023 12:37:38 06/13/2006/13/2023 CBC/C OMPLE TE BLD COUNT W/DIF F lymphocytes 31.1 % 16.0-4 7.0 Not Available [facility] (Lab) [address] [place], [address], 06/13/2023 12:37:38 06/13/20 23 06/13/2023 CBC/C OMPLE TE BLD COUNT W/DIF F monocytes 7.9 % 5.0-12 .0 Not Available [facility] (Lab) [address] [place], [address], 06/13/2023 12:37:38 06/13/20 23 06/13/2023 CBC/C OMPLE TE BLD COUNT W/DIF F eosinophils 2.5 % 1.0-7. 0 Not Available [facility] (Lab) [address] [place], [address], 06/13/2023 12:37:38 06/13/20 23 06/13/2023 CBC/C OMPLE TE BLD COUNT W/DIF F basophils 0.7 % 0.0-2. 0 Not Available [facility] (Lab) [address] [place], [address], 06/13/2023 12:37:38 06/13/20 23 06/13/2023 CBC/C OMPLE TE BLD COUNT W/DIF F immature granulocytes 0.5 % 0.00-0 .50 Not Available [facility] (Lab) [address] [place], [address], 06/13/2023 12:37:38 06/13/20 23 06/13/2023 CBC/C OMPLE TE BLD COUNT W/DIF F neutrophils, absolute count 2.55 x10'3 /uL 1.5-8. 0 Not Available [facility] (Lab) [address] [place], [address], 06/13/2023 12:37:38 06/13/20 23 06/13/2023 CBC/C OMPLE TE BLD COUNT W/DIF F lymphocytes, absolute count 1.38 x10'3 /uL 1.07-3 .43 Not Available [facility] (Lab) [address] [place], [address], 06/13/2023 12:37:38 06/13/20 23 06/13/2023 CBC/C OMPLE TE BLD COUNT W/DIF F monocytes, absolute count 0.35 x10'3 /uL 0.29-0 .99 Not Available [facility] (Lab) [address] [place], [address], 06/13/2023 12:37:38 06/13/20 23 06/13/2023 CBC/C OMPLE TE BLD COUNT W/DIF F eosinophils, absolute count 0.11 x10'3 /uL 0.02-0 .53 Not Available [facility] (Lab) [address] [place], [address], 06/13/2023 12:37:38 06/13/20 23 06/13/2023 CBC/C OMPLE TE BLD COUNT W/DIF F basophils, absolute count 0.03 x10'3 /uL 0.01-0 .08 Not Available [facility] (Lab) [address] [place], [address], 06/13/2023 12:37:38 06/13/2006/13/2023 CBC/C OMPLE TE BLD COUNT W/DIF F immature granulocytes ,absolute 0.02 x10'3 /uL 0.00-0 .05 Not Available [facility] (Lab) [address] [place], [address], 06/13/2023 12:37:38 06/13/20 23 06/13/2023 CBC/C OMPLE TE BLD COUNT W/DIF F nucleated red blood cells 0.0 % -0 Not Available [facility] (Lab) [address] [place], [address], 06/13/2023 12:37:38 06/13/20 23 06/13/2023 CBC/C OMPLE TE BLD COUNT W/DIF F NRBC# 0.00 x10'3 /uL Not Available [facility] (Lab) [address] [place], [address], 06/13/2023 12:37:38 06/13/20 23 06/13/2023 LIPID PANEL cholesterol 141 mg/dL 140-19 9 NIH ADRIENNE NSUS RECOM MENDA TION FOR INNA STERO L: ADULT CHILD LOW RISK: <200 <170 BORDE RLINE : <200- 239 ----- HIGH RISK: >240 >200 Not Available [facility] (Lab) [address] [place], [address], 06/13/2023 12:41:58 06/13/20 23 06/13/2023 LIPID PANEL triglyceride s 57 mg/dL 0-150 NIH ADRIENNE NSUS REPOR T RECOM MENDA TION FOR TRIGL YCERI OLEKSANDR: ADULT CHILD LOW RISK: <150 ----- BODER LINE: 150-1 99 ----- HIGH RISK: >200 ----- Not Available [facility] (Lab) [address] [place], [address], 06/13/2023 12:41:58 06/13/20 23 06/13/2023 LIPID PANEL HDL cholesterol 52 mg/dL 40- Not Available [facility] (Lab) [address] [place], [address], 06/13/2023 12:41:58 06/13/20 23 06/13/2023 LIPID PANEL LDL cholesterol, calculated 78 mg/dL 0-130 NIH ADRIENNE NSUS REPOR T RECOM MENDA TIONS FOR LDL: ADULT CHILD LOW RISK <130 <110 (OPTI MAL LDL) <100 ----- BORDE RLINE : 130-1 59 ----- HIGH RISK: >160 >130 A TRIGL YCERI DE RESUL T >400 INVAL IDATE S THE CALCU LATIO N FOR LDL FRACT IONAT ION - THE LDL RESUL T WILL NOT BE REPOR COLTEN. Not Available [facility] (Lab) [address] [place], [address], 06/13/2023 12:41:58 06/13/20 23 06/13/2023 COMPR EHENS BEN METAB OLIC PANEL sodium 140 mmol/ L 137-14 5 Not Available [facility] (Lab) [address] [place], [address], 06/13/2023 12:42:07 06/13/20 23 06/13/2023 COMPR EHENS BEN METAB OLIC PANEL potassium 4.7 mmol/ L 3.5-5. 1 Not Available [facility] (Lab) [address] [place], [address], 06/13/2023 12:42:07 06/13/20 23 06/13/2023 COMPR EHENS BEN METAB OLIC PANEL chloride 106 mmol/ L 98-107 Not Available [facility] (Lab) [address] [place], [address], 06/13/2023 12:42:07 06/13/20 23 06/13/2023 COMPR EHENS BEN METAB OLIC PANEL carbon dioxide 24 mmol/ L 22-30 Not Available [facility] (Lab) [address] [place], [address], 06/13/2023 12:42:07 06/13/20 23 06/13/2023 COMPR EHENS BEN METAB OLIC PANEL anion gap 14.7 mmol/ L 14-22 Not Available [facility] (Lab) [address] [place], [address], 06/13/2023 12:42:07 06/13/20 23 06/13/2023 COMPR EHENS BEN METAB OLIC PANEL glucose 107 mg/dL 70-99 high Not Available [facility] (Lab) [address] [place], [address], 06/13/2023 12:42:07 06/13/20 23 06/13/2023 COMPR EHENS BEN METAB OLIC PANEL BUN 15 mg/dL 8-19 Not Available [facility] (Lab) [address] [place], [address], 06/13/2023 12:42:07 06/13/20 23 06/13/2023 COMPR EHENS BEN METAB OLIC PANEL creatinine 0.79 mg/dL 0.66-1 .25 Not Available [facility] (Lab) [address] [place], [address], 06/13/2023 12:42:07 06/13/2006/13/2023 COMPR EHENS BEN METAB OLIC PANEL GFR >60 Refer ence Range : [place] ge GFR Healt hy Adult : >60 mL/mi n/1.7 3 m2 Chron ic Kidne y Disea se: 15-60 mL/mi n/1.7 3 m2 Kidne y Failu re: <15/m L/min /1.73 m2 www.n iddk. nih.g ov The MDRD study equat ion has not been valid ated in child massiel <18 years of age; pregn ant women ; the elder ly >85 years of age; or in some racia l or ethni c subgr oups, such as Hispa nics. Outsi de the valid ated lena eters , estim ated GFR is less accur ate, requi ring clini sharee judgm ent on a case- by-ca se basis . Clini sharee inter preta tion for other races and ages must be made by the clini manuela. The MDRD study equat ion has not been valid ated for the evalu ation of serum creat inine relat ed to nutri yoana l statu s or medic ation usage . For perso ns <18 years of age, a pedia tric GFR calcu lator is avail able on the [facility] websi te: https :[email or web address] lee.farrukh [email or web address] pranav/pr ofess ional s/kdo qi/gf r_cal culat or Not Available [facility] (Lab) [address] [place], [address], 06/13/2023 12:42:07 06/13/20 23 06/13/2023 COMPR EHENS BEN METAB OLIC PANEL alkaline phosphatase 98 U/L 38-126 Not Available [facility] (Lab) [address] [place], [address], 06/13/2023 12:42:07 06/13/20 23 06/13/2023 COMPR EHENS BEN METAB OLIC PANEL alanine aminotransfe rase 26 U/L 0-50 Not Available [facility] (Lab) [address] [place], [address], 06/13/2023 12:42:07 06/13/20 23 06/13/2023 COMPR EHENS BEN METAB OLIC PANEL aspartate aminotransfe rase 25 U/L 15-46 Not Available [facility] (Lab) [address] [place], [address], 06/13/2023 12:42:07 06/13/20 23 06/13/2023 COMPR EHENS BEN METAB OLIC PANEL bilirubin, total 0.60 mg/dL 0.20-1 .30 Not Available [facility] (Lab) [address] [place], [address], 06/13/2023 12:42:07 06/13/20 23 06/13/2023 COMPR EHENS BEN METAB OLIC PANEL calcium 9.3 mg/dL 8.4-10 .2 Not Available [facility] (Lab) [address] [place], [address], 06/13/2023 12:42:07 06/13/20 23 06/13/2023 COMPR EHENS BEN METAB OLIC PANEL total protein 7.3 g/dL 6.3-8. 2 Not Available [facility] (Lab) [address] [place], [address], 06/13/2023 12:42:07 06/13/20 23 06/13/2023 COMPR EHENS BEN METAB OLIC PANEL albumin 4.4 g/dL 3.4-5. 0 Not Available [facility] (Lab) [address] [place], [address], 06/13/2023 12:42:07 06/13/20 23 06/13/2023 COMPR EHENS BEN METAB OLIC PANEL globulin 2.9 g/dL 2.6-4. 2 Not Available [facility] (Lab) [address] [place], [address], 06/13/2023 12:42:07 06/13/20 23 06/13/2023 COMPR EHENS BEN METAB OLIC PANEL A/G ratio 1.5 ratio 1.0-2. 0 Not Available [facility] (Lab) [address] [place], [address], 06/13/2023 12:42:07 06/13/20 23 06/13/2023 C REACT BEN PROTE IN,UL TRA SENS C-reactive protein 0.11 mg/dL 0.0-0. 5 Not Available [facility] (Lab) [address] [place], [address], 06/13/2023 12:49:37 06/13/20 23 06/13/2023 RHEUM ATOID FACTO R rf <8.6 IU/mL 0.0-11 .9 Not Available [facility] (Lab) [address] [place], [address], 06/13/2023 12:49:38 06/13/20 23 06/13/2023 MICRO ALBUM IN RANDO M URINE microalbumin , urine <6.0 mg/L 0.0-16 .6 Not Available [facility] (Lab) [address] [place], [address], 06/13/2023 12:49:41 06/13/20 23 06/13/2023 HEMOG LOBIN A1C HA1C 5.3 % 4.0-6. 0 Diabe marybel Scree leonard Crite stephanie: <5.7% Consi stent with absen ce of diabe marybel 5.7-6 .4% Consi stent with incre ased risk for diabe marybel (pred iabet es) >OR=6 .5% Consi stent with diabe marybel REFER ENCE: Diabe marybel Care 2015, 39(Lehman ppl.1 ):s13 -s22 Not Available [facility] (Lab) [address] [place], [address], 06/13/2023 13:19:57 06/13/20 23 06/13/2023 TSH W/REF LUCY FT4 TSH with reflex free T4 0.844 uIU/m L 0.465- 4.680 Not Available [facility] (Lab) [address] [place], [address], 06/13/2023 13:22:18 06/13/20 23 06/13/2023 SEDIM ENTAT ION RATE erythrocyte sedimentatio n rate 11 mm/HR 0-20 Not Available [facility] (Lab) [address] [place], [address], 06/13/2023 13:58:48 06/13/20 23 06/14/2023 ANTI- CCP ANTIB ODIES IGG/I GA ccp antibodies IgG/IgA 0 units 0-19 Negat ben <20 Weak posit ben 20 - 39 Moder ate posit ben 40 - 59 Stron g posit ben >59 Perfo rmed at: [facility] [address] [place] [address] Lab Direc tor: Anthony loja PhD, Phone : [phone] Not Available [facility] (Lab) [address] [place] [address], [address], 06/14/2023 14:09:48 06/13/20 23 06/15/2023 GEORGE BY IFA RFX TITER /JOSE A RASHI antinuclear antibodies, ifa Negati ve Negat ben <1:80 Borde rline 1:80 Posit ben >1:80 ICAP nomen jesse re: AC-0 For more infor arvin lao about Hep-2 cell patte rns use ANApa ttern s.org , the offic blaire stearns for the Inter natio nal Conse nsus on Antin uclea r Antib mary (GEORGE) Patte rns (ICAP ). Perfo rmed at: [facility] [address] [place] [address] Lab Direc tor: Anthony loja PhD, Phone : [phone] Not Available [facility] (Lab) [address] [place], [address], 06/15/2023 17:07:56 01/09/20 24 01/09/2024 CBC/C OMPLE TE BLD COUNT W/DIF F white blood cells 5.0 x10'3 /uL 4.2-10 .8 Not Available [facility] (Lab) [address] [place] [address], [address], 01/09/2024 12:09:58 01/09/20 24 01/09/2024 CBC/C OMPLE TE BLD COUNT W/DIF F red blood cells 5.09 x10'6 /uL 4.10-5 .80 Not Available [facility] (Lab) [address] [place], [address], 01/09/2024 12:09:58 01/09/20 24 01/09/2024 CBC/C OMPLE TE BLD COUNT W/DIF F hemoglobin 15.3 g/dL 13.2-1 7.0 Not Available [facility] (Lab) [address] [place], [address], 01/09/2024 12:09:58 01/09/20 24 01/09/2024 CBC/C OMPLE TE BLD COUNT W/DIF F hematocrit 44.1 % 39.3-5 0.0 Not Available [facility] (Lab) [address] [place], [address], 01/09/2024 12:09:58 01/09/20 24 01/09/2024 CBC/C OMPLE TE BLD COUNT W/DIF F mean red cell volume 86.6 fL 80.0-9 7.0 Not Available [facility] (Lab) [address] [place], [address], 01/09/2024 12:09:58 01/09/20 24 01/09/2024 CBC/C OMPLE TE BLD COUNT W/DIF F mean red cell hemoglobin 30.1 pg 27.0-3 3.0 Not Available [facility] (Lab) [address] [place], [address], 01/09/2024 12:09:58 01/09/20 24 01/09/2024 CBC/C OMPLE TE BLD COUNT W/DIF F mean RBC HGB concentratio n 34.7 g/dL 31.0-3 6.0 Not Available [facility] (Lab) [address] [place], [address], 01/09/2024 12:09:58 01/09/20 24 01/09/2024 CBC/C OMPLE TE BLD COUNT W/DIF F red cell distribution width 12.3 % 11.8-1 5.5 Not Available [facility] (Lab) [address] [place], [address], 01/09/2024 12:09:58 01/09/20 24 01/09/2024 CBC/C OMPLE TE BLD COUNT W/DIF F platelets 263 x10'3 /uL 150-40 0 Not Available [facility] (Lab) [address] [place], [address], 01/09/2024 12:09:58 01/09/20 24 01/09/2024 CBC/C OMPLE TE BLD COUNT W/DIF F mean platelet volume 10.0 fL 9.0-12 .4 Not Available [facility] (Lab) [address] [place], [address], 01/09/2024 12:09:58 01/09/20 24 01/09/2024 CBC/C OMPLE TE BLD COUNT W/DIF F neutrophils 51.9 % 39.0-7 2.0 Not Available [facility] (Lab) [address] [place], [address], 01/09/2024 12:09:58 01/09/2001/09/2024 CBC/C OMPLE TE BLD COUNT W/DIF F lymphocytes 33.1 % 16.0-4 7.0 Not Available [facility] (Lab) [address] [place], [address], 01/09/2024 12:09:58 01/09/20 24 01/09/2024 CBC/C OMPLE TE BLD COUNT W/DIF F monocytes 10.6 % 5.0-12 .0 Not Available [facility] (Lab) [address] [place], [address], 01/09/2024 12:09:58 01/09/20 24 01/09/2024 CBC/C OMPLE TE BLD COUNT W/DIF F eosinophils 2.6 % 1.0-7. 0 Not Available [facility] (Lab) [address] [place], [address], 01/09/2024 12:09:58 01/09/20 24 01/09/2024 CBC/C OMPLE TE BLD COUNT W/DIF F basophils 0.6 % 0.0-2. 0 Not Available [facility] (Lab) [address] [place], [address], 01/09/2024 12:09:58 01/09/20 24 01/09/2024 CBC/C OMPLE TE BLD COUNT W/DIF F immature granulocytes 1.2 % 0.00-0 .50 high Not Available [facility] (Lab) [address] [place], [address], 01/09/2024 12:09:58 01/09/20 24 01/09/2024 CBC/C OMPLE TE BLD COUNT W/DIF F neutrophils, absolute count 2.60 x10'3 /uL 1.5-8. 0 Not Available [facility] (Lab) [address] [place], [address], 01/09/2024 12:09:58 01/09/20 24 01/09/2024 CBC/C OMPLE TE BLD COUNT W/DIF F lymphocytes, absolute count 1.66 x10'3 /uL 1.07-3 .43 Not Available [facility] (Lab) [address] [place], [address], 01/09/2024 12:09:58 01/09/20 24 01/09/2024 CBC/C OMPLE TE BLD COUNT W/DIF F monocytes, absolute count 0.53 x10'3 /uL 0.29-0 .99 Not Available [facility] (Lab) [address] [place], [address], 01/09/2024 12:09:58 01/09/20 24 01/09/2024 CBC/C OMPLE TE BLD COUNT W/DIF F eosinophils, absolute count 0.13 x10'3 /uL 0.02-0 .53 Not Available [facility] (Lab) [address] [place], [address], 01/09/2024 12:09:58 01/09/20 24 01/09/2024 CBC/C OMPLE TE BLD COUNT W/DIF F basophils, absolute count 0.03 x10'3 /uL 0.01-0 .08 Not Available [facility] (Lab) [address] [place], [address], 01/09/2024 12:09:58 01/09/20 24 01/09/2024 CBC/C OMPLE TE BLD COUNT W/DIF F immature granulocytes ,absolute 0.06 x10'3 /uL 0.00-0 .05 high Not Available [facility] (Lab) [address] [place], [address], 01/09/2024 12:09:58 01/09/20 24 01/09/2024 CBC/C OMPLE TE BLD COUNT W/DIF F nucleated red blood cells 0.0 % -0 Not Available [facility] (Lab) [address] [place], [address], 01/09/2024 12:09:58 01/09/20 24 01/09/2024 CBC/C OMPLE TE BLD COUNT W/DIF F NRBC# 0.00 x10'3 /uL Not Available [facility] (Lab) [address] [place], [address], 01/09/2024 12:09:58 01/09/20 24 01/09/2024 LIPID PANEL cholesterol 140 mg/dL 140-19 9 NIH ADRIENNE NSUS RECOM MENDA TION FOR INNA STERO L: ADULT CHILD LOW RISK: <200 <170 BORDE RLINE : <200- 239 ----- HIGH RISK: >240 >200 Not Available [facility] (Lab) [address] [place], [address], 01/09/2024 12:34:50 01/09/20 24 01/09/2024 LIPID PANEL triglyceride s 73 mg/dL 0-150 NIH ADRIENNE NSUS REPOR T RECOM MENDA TION FOR TRIGL YCERI OLEKSANDR: ADULT CHILD LOW RISK: <150 ----- BODER LINE: 150-1 99 ----- HIGH RISK: >200 ----- Not Available [facility] (Lab) [address] [place], [address], 01/09/2024 12:34:50 01/09/20 24 01/09/2024 LIPID PANEL HDL cholesterol 55 mg/dL 40- Not Available [facility] (Lab) [address] [place], [address], 01/09/2024 12:34:50 01/09/20 24 01/09/2024 LIPID PANEL LDL cholesterol, calculated 70 mg/dL 0-130 NIH ADRIENNE NSUS REPOR T RECOM MENDA TIONS FOR LDL: ADULT CHILD LOW RISK <130 <110 (OPTI MAL LDL) <100 ----- BORDE RLINE : 130-1 59 ----- HIGH RISK: >160 >130 A TRIGL YCERI DE RESUL T >400 INVAL IDATE S THE CALCU LATIO N FOR LDL FRACT IONAT ION - THE LDL RESUL T WILL NOT BE REPOR COLTEN. Not Available [facility] (Lab) [address] [place], [address], 01/09/2024 12:34:50 01/09/20 24 01/09/2024 COMPR EHENS BEN METAB OLIC PANEL sodium 137 mmol/ L 137-14 5 Not Available [facility] (Lab) [address] [place], [address], 01/09/2024 12:34:55 01/09/20 24 01/09/2024 COMPR EHENS BEN METAB OLIC PANEL potassium 4.5 mmol/ L 3.5-5. 1 Not Available [facility] (Lab) [address] [place], [address], 01/09/2024 12:34:55 01/09/20 24 01/09/2024 COMPR EHENS BEN METAB OLIC PANEL chloride 110 mmol/ L 98-107 high Not Available [facility] (Lab) [address] [place], [address], 01/09/2024 12:34:55 01/09/20 24 01/09/2024 COMPR EHENS BEN METAB OLIC PANEL carbon dioxide 22 mmol/ L 22-30 Not Available [facility] (Lab) [address] [place], [address], 01/09/2024 12:34:55 01/09/20 24 01/09/2024 COMPR EHENS BEN METAB OLIC PANEL anion gap 9.5 mmol/ L 14-22 low Not Available [facility] (Lab) [address] [place], [address], 01/09/2024 12:34:55 01/09/20 24 01/09/2024 COMPR EHENS BEN METAB OLIC PANEL glucose 103 mg/dL 70-99 high Not Available [facility] (Lab) [address] [place], [address], 01/09/2024 12:34:55 01/09/20 24 01/09/2024 COMPR EHENS BEN METAB OLIC PANEL BUN 16 mg/dL 8-19 Not Available [facility] (Lab) [address] [place], [address], 01/09/2024 12:34:55 01/09/20 24 01/09/2024 COMPR EHENS BEN METAB OLIC PANEL creatinine 0.80 mg/dL 0.66-1 .25 Not Available [facility] (Lab) [address] [place], [address], 01/09/2024 12:34:55 01/09/20 24 01/09/2024 COMPR EHENS BEN METAB OLIC PANEL GFR >60 Refer ence Range : [place] ge GFR Healt hy Adult : >60 mL/mi n/1.7 3 m2 Chron ic Kidne y Disea se: 15-60 mL/mi n/1.7 3 m2 Kidne y Failu re: <15/m L/min /1.73 m2 www.n iddk. nih.g ov The MDRD study equat ion has not been valid ated in child massiel <18 years of age; pregn ant women ; the elder ly >85 years of age; or in some racia l or ethni c subgr oups, such as Hispa nics. Outsi de the valid ated lena eters , estim ated GFR is less accur ate, requi ring clini sharee judgm ent on a case- by-ca se basis . Clini sharee inter preta tion for other races and ages must be made by the clini manuela. The MDRD study equat ion has not been valid ated for the evalu ation of serum creat inine relat ed to nutri yoana l statu s or medic ation usage . For perso ns <18 years of age, a pedia tric GFR calcu lator is avail able on the [facility] websi te: https :[email or web address] kennedy.parminder rock/pr ofess ional s/kdo qi/gf r_cal culat or Not Available [facility] (Lab) [address] [place], [address], 01/09/2024 12:34:55 01/09/2001/09/2024 COMPR EHENS BEN METAB OLIC PANEL alkaline phosphatase 108 U/L 38-126 Not Available [facility] (Lab) [address] [place], [address], 01/09/2024 12:34:55 01/09/20 24 01/09/2024 COMPR EHENS BEN METAB OLIC PANEL alanine aminotransfe rase 35 U/L 0-50 Not Available [facility] (Lab) [address] [place], [address], 01/09/2024 12:34:55 01/09/20 24 01/09/2024 COMPR EHENS BEN METAB OLIC PANEL aspartate aminotransfe rase 26 U/L 15-46 Not Available [facility] (Lab) [address] [place], [address], 01/09/2024 12:34:55 01/09/20 24 01/09/2024 COMPR EHENS BEN METAB OLIC PANEL bilirubin, total 0.70 mg/dL 0.20-1 .30 Not Available [facility] (Lab) [address] [place], [address], 01/09/2024 12:34:55 01/09/20 24 01/09/2024 COMPR EHENS BEN METAB OLIC PANEL calcium 9.5 mg/dL 8.4-10 .2 Not Available [facility] (Lab) [address] [place], [address], 01/09/2024 12:34:55 01/09/20 24 01/09/2024 COMPR EHENS BEN METAB OLIC PANEL total protein 7.2 g/dL 6.3-8. 2 Not Available [facility] (Lab) [address] [place], [address], 01/09/2024 12:34:55 01/09/20 24 01/09/2024 COMPR EHENS BEN METAB OLIC PANEL albumin 4.6 g/dL 3.4-5. 0 Not Available [facility] (Lab) [address] [place], [address], 01/09/2024 12:34:55 01/09/20 24 01/09/2024 COMPR EHENS BEN METAB OLIC PANEL globulin 2.6 g/dL 2.6-4. 2 Not Available [facility] (Lab) [address] [place], [address], 01/09/2024 12:34:55 01/09/20 24 01/09/2024 COMPR EHENS BEN METAB OLIC PANEL A/G ratio 1.8 ratio 1.0-2. 0 Not Available [facility] (Lab) [address] [place], [address], 01/09/2024 12:34:55 01/09/20 24 01/09/2024 MICRO ALBUM IN RANDO M URINE microalbumin , urine 7.4 mg/L 0.0-16 .6 Not Available [facility] (Lab) [address] [place], [address], 01/09/2024 12:42:25 01/09/20 24 01/09/2024 HEMOG LOBIN A1C HA1C 5.4 % 4.0-6. 0 Diabe marybel Scree leonard Crite stephanie: <5.7% Consi stent with absen ce of diabe marybel 5.7-6 .4% Consi stent with incre ased risk for diabe marybel (pred iabet es) >OR=6 .5% Consi stent with diabe marybel REFER ENCE: Diabe marybel Care 2016, 39(Lehman ppl.1 ):s13 -s22 Not Available [facility] (Lab) [address] [place], [address], 01/09/2024 13:09:32 01/09/20 24 01/09/2024 TSH W/REF LUCY FT4 TSH with reflex free T4 1.130 uIU/m L 0.465- 4.680 Not Available [facility] (Lab) [address] [place], [address], 01/09/2024 13:14:55 11/11/19 24 10/24/2023 home sleep study No observ ation record ed. [facility] [address] [place], [address], 11/11/2023 13:47:51 12/02/19 24 12/01/2023 compl ete PFT w/ post [facility] hodil ator stormy metry * No observ ation record ed. [facility] (One Call Scheduling) [address] [place], [address], 12/02/2023 09:03:14 05/03/20 24 05/03/2024 imagi ng/di agnos tic resul t No observ ation record ed. [facility] [address], [place], [address], 05/03/2024 21:54:23 09/08/19 25 09/07/2024 imagi ng/di agnos tic resul t No observ ation record ed. [facility] [address], [place], [address], 09/07/2024 17:55:31 09/08/19 25 09/07/2024 imagi ng/di agnos tic resul t No observ ation record ed. [facility] [address], [place], [address], 09/07/2024 19:14:25 Result Notes None recorded. Problems Name Problem SNOMED Code Status Onset Date Resolution Date Notes Provider Name and Address Organization Details Recorded Time Mild persistent asthma 141674775 Active 2022 Not Available [facility] 3 10:41:17 Hyperlipid emia 35616279 Active 2022 Not Available [facility] 3 10:41:17 Obstructiv e sleep apnea syndrome 22643369 Active 2022 Not Available [facility] 3 10:41:18 Moderate recurrent major depression 62715806 Active 2022 Not Available [facility] 3 10:41:17 COVID-19 097725907 Active 2022 Not Available [facility] 3 10:41:18 Lateral epicondyli tis of right humerus 5583984526801 07 Active 2023 Justino mauricio MD [address], [place], [address] , [employer] [facility] 4 14:40:00 Lateral epicondyli tis of left humerus 5876332096007 00 Active 2023 Justino mauricio MD [address], [place], [address] , [employer] [facility] 4 14:40:00 Insomnia 245405617 Active 2023 Justino mauricio MD [address], [place], [address] , [employer] [facility] [employer] 4 09:00:32 Cubital tunnel syndrome Active 2019 Not Available [facility] 3 10:41:17 Asthma 297149022 Active 2023 Justino mauricio MD [address], [place], [address] , [employer] [facility] [employer] 4 11:47:54 Low back pain 301824181 Active 2023 Justino mauricio MD [address], [place], [address] , [employer] [facility] [employer] 4 11:47:54 Pain of left wrist 0074367071720 02 Active 2023 Justino mauricio MD [address], [place], [address] , [employer] [facility] [employer] 4 11:47:54 Pain of right shoulder joint 2134243505201 9100 Active 2023 Justino mauricio MD [address], [place], [address] , [employer] [facility] 4 11:47:54 Hyperglyce silvia 48732161 Active 2023 Justino mauricio MD [address] [facility] [facility] [address], [place], [address] , [facility] [employer] [facility] 4 11:47:54 Multiple joint pain 97555042 Active 2023 Justino mauricio MD [address] [facility] [facility] [address], [place], [address] , [facility] [employer] [facility] 4 11:47:54 Proteinuri a 72593426 Active 2024 Justino mauricio MD [address] [facility] [facility] [address], [place], [address] , [facility] [employer] [facility] [employer] [facility] 5 14:32:33 Notes:[facility] home sleep study with MAD 10/24/23 AHI = 2, supine AHI = 4 Mild ACO Medical History: Anxiety/Depression COVID infections 05/2021, 05/2022 Rhinitis to multiple environmental allergens Eosinophils 120/uL IgE 68 IU/mL Mild ACO (+) Aspergillus fumigatus IgE Mild OSAHS, AHI = 13, 02/03/23, on MAD c/o [place] Mixed hyperlipidemia AAT PiMM 128 mg% MERVIN Diverticulosis Bilateral lateral epicondylitis Cubital tunnel syndrome Procedure History: Right wrist surgery 2007 Left shoulder surgery 2012 Left elbow surgeries 2021 Right elbow surgeries 2021 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 Procedures Surgical History Date Name Laterality Status Provider Name and Address Organization Details Recorded Time 11/29/19 23 Ortho - Cortisone Injection completed Honorio Gonzales MD [address] [facility] [facility] [address], [place], [address], [facility] [employer] [facility] 11/28/2022 13:24:38 06/06/20 22 OPEN MEDIAL EPICONDYLAR DEBRIDEMENT AND REPAIR (SURG) completed Not Available [facility] 08/28/2022 03:32:25 03/27/20 21 LATERAL EPICONDYLAR RELEASE (SURG) completed Not Available [facility] 08/28/2022 03:32:25 07/20/19 21 other completed Not Available [facility] 03:14:37 12/07/19 20 repair of elbow completed Not Available [facility] 06/2022 03:14:37 08/30/19 20 repair of elbow completed Not Available [facility] 06/2022 03:14:37 09/29/19 15 Wendy arthrs srg capsulorraphy completed Not Available [facility] 08/28/2022 03:14:37 03/30/20 09 Wrist arthroscopy/surge ry completed Not Available [facility] 08/28/2022 03:14:37 Imaging Results Imaging Date Name Status LastModified by Organization Details LastModified Time 10/24/2023 home sleep study completed [facility] [address] [place], [address], 11/11/2023 13:47:51 12/01/2023 complete PFT w/ post bronchodilator spirometry* completed [facility] (One Call Scheduling) [address] [place], [address], 12/02/2023 09:03:14 05/03/2024 imaging/diagnostic result active [facility] [address], [place], [address], 05/03/2024 21:54:23 09/07/2024 imaging/diagnostic result active [facility] [address], [place], [address], 09/07/2024 17:55:31 09/07/2024 imaging/diagnostic result active [facility] [address], [place], [address], 09/07/2024 19:14:25 Procedure Notes None recorded. Medical Equipment None Reported. Allergies No known drug allergies Medications Name Sig Start Date Stop Date Status Note LastModified by Organization Details LastModified Time amoxicill in 500 mg capsule active Not Available Not Available Not Available buspirone 5 mg tablet 07/19 completed Not Available Not Available Not Available prednison e 10 mg tablet TAKE 1 TAB 3 TIMES DAILY X3 DAYS, 1 TAB TWICE DAILY X2 DAYS THEN 1 TAB DAILY X1 DAY 01/02 completed Not Available Not Available Not Available nabumeton e 750 mg tablet TAKE ONE TABLET TWICE DAILY WITH FOOD OR MILK NEEDED active Not Available Not Available No t Available trazodone 50 mg tablet Take 1 tablet every day by oral route as needed for 30 days. active Not Available Not Available No t Available hydrocodo ne 5 mg-acetam inophen 325 mg tablet TAKE 1 TABLET BY MOUTH EVERY 12 HOURS NEEDED FOR PAIN 08/12 completed Not Available Not Available Not Available ondansetr on HCl 4 mg tablet 08/19 completed Not Available Not Available Not Available sertralin e 100 mg tablet TK 1 T PO QD active Not Available Not Available No t Available Zyrtec 10 mg tablet Take 1 tablet every day by oral route as needed for 90 days. 01/14 completed Not Available Not Available Not Available metronida zole 500 mg tablet 03/06 completed Not Available Not Available Not Available acetamino phen 300 mg-codein e 30 mg tablet TK 1 T PO HS PRF PAIN 11/01 completed Not Available Not Available Not Available ciproflox acin 500 mg tablet 03/06 completed Not Available Not Available Not Available tramadol 50 mg tablet TAKE 1 TABLET BY MOUTH EVERY 6 HOURS NEEDED active Not Available Not Available No t Available prednison e 10 mg tablets in a dose pack Take 1 tab by mouth, 3 times a day for 3 daysTake 1 tab by mouth 2 times a day for 2 daysTake 1 tab by mouth once a day for 1 day 01/02 completed Not Available Not Available Not Available meloxicam 7.5 mg tablet Take 1 tablet twice a day by oral route as needed for 30 days. 10/20 completed Not Available Not Available Not Available amoxicill in 875 mg tablet TAKE 1 TABLET ORAL ROUTE EVERY 12 HOURS FOR 10 DAYS 07/01 completed Not Available Not Available Not Available alprazola m 0.25 mg tablet 09/30 completed Not Available Not Available Not Available famotidin e 20 mg tablet TAKE 1 TABLET BY MOUTH DAILY 04/25 completed Not Available Not Available Not Available tamsulosi n 0.4 mg capsule TAKE 1 CAPSULE BY MOUTH EVERY DAY 12/25 completed Not Available Not Available Not Available Kenalog 10 mg/mL suspensio n for injection Take 20 mg by injectio n route. 01/02 completed [facility]: [phone] Not Available Not Available Not Available benzonata te 100 mg capsule 09/30 completed Not Available Not Available Not Available doxycycli ne monohydra te 100 mg capsule TAKE 1 CAPSULE (100 MG) BY MOUTH TWICE A DAY FOR 7 DAYS 07/01 completed Not Available Not Available Not Available cephalexi n 500 mg capsule 07/22 completed Not Available Not Available Not Available oseltamiv ir 75 mg capsule 09/30 completed Not Available Not Available Not Available buspirone 10 mg tablet TAKE 1 TABLET BY MOUTH THREE TIMES DAILY 01/15 completed Not Available Not Available Not Available hyoscyami ne 0.125 mg sublingua l tablet 04/22 completed Not Available Not Available Not Available polymyxin B sulfate 10,000 unit-trim ethoprim 1 mg/mL eye drops INSTILL 1 DROP OPHTHALM IC ROUTE EVERY 4 HOURS FOR 7 DAYS 07/01 completed Not Available Not Available Not Available sertralin e 25 mg tablet TAKE 1 TABLET BY MOUTH EVERY DAY 01/14 completed pt stopped taking Not Available Not Available Not Available diclofena c sodium 75 mg tablet,de layed release Take 1 tablet twice a day by oral route. 10/16 completed Not Available Not Available Not Available monteluka st 10 mg tablet 09/30 completed Not Available Not Available Not Available bisacodyl 5 mg tablet,de layed release TAKE ALL 6 TABLETS AT 8AM ON 09/03/1812/01 completed Not Available Not Available Not Available mupirocin 2 % topical ointment DANNY EXT AA TID 07/22 completed Not Available Not Available Not Available diclofena c sodium 50 mg tablet,de layed release Take 1 tablet twice a day by oral route as needed for 30 days. active Not Available Not Available No t Available ibuprofen 600 mg tablet TAKE 1 TABLET BY MOUTH THREE TIMES DAILY NEEDED FOR PAIN 04/25 completed Not Available Not Available Not Available zolpidem 10 mg tablet TAKE 1 TABLET BY MOUTH EVERY DAY NEEDED active Not Available Not Available No t Available methylpre dnisolone 4 mg tablets in a dose pack Take 1 dose pk by oral route. 05/03 completed Not Available Not Available Not Available albuterol sulfate HFA 90 mcg/actua tion aerosol inhaler Inhale 1 puff every 4 hours by inhalati on route as needed. 2023 active Not Available Not Available Not Avai lable sertralin e 50 mg tablet TAKE 2 TABLETS (100MG) ONCE DAILY active Not Available Not Available No t Available naproxen 500 mg tablet TAKE ONE TABLET TWICE DAILY active Not Available Not Available No t Available amoxicill in 875 mg-potass ium clavulana te 125 mg tablet Take 1 tablet every 12 hours by oral route for 7 days. active Not Available Not Available No t Available escitalop renard 20 mg tablet 04/22 completed Not Available Not Available Not Available rosuvasta tin 20 mg tablet TAKE 1 TABLET BY MOUTH EVERY DAY active Not Available Not Available No t Available bupropion HCl XL 150 mg 24 hr tablet, extended release 04/22 completed Not Available Not Available Not Available duloxetin e 30 mg capsule,d elayed release active Not Available Not Available Not Available duloxetin e 60 mg capsule,d elayed release active Not Available Not Available Not Available lidocaine (PF) 10 mg/mL (1 %) injection solution In office injectio n administ ered by the provider 04/25 completed [facility]: [id number] 12-14 Not Available Not Available Not Available Gavilyte- C 240 gram-22.7 2 gram-6.72 gram-5.84 gram oral solution 12/01 completed Not Available Not Available Not Available imiquimod 3.75 % topical cream packet APPLY TO THE AFFECTED AREA DAILY ON FRIDAY - 12/25 completed Not Available Not Available Not Available ropivacai ne (PF) 5 mg/mL (0.5 %) injection solution Take 20 mg by injectio n route. 01/02 completed [facility] [id number] 09-28 Not Available Not Available Not Available imiquimod 3.75 % topical cream in a pump U UTD D FRIDAY THROUGH 07/22 completed Not Available Not Available Not Available fluticaso ne furoate 100 mcg-vilan terol 25 mcg/dose inhalatio n powder INHALE 1 PUFF BY MOUTH EVERY DAY active Not Available Not Available No t Available adapalene 0.1 %-benzoyl peroxide 2.5 % topical gel with pump prn 08/19 completed Not Available Not Available Not Available Trintelli x 20 mg tablet 10/12 completed Not Available Not Available Not Available Wixela Inhub 100 mcg-50 mcg/dose powder for inhalatio n INHALE 1 PUFF TWICE A DAY 06/19 completed Not Available Not Available Not Available Flucelvax Quad (PF) 60 mcg (15 mcg x 4)/0.5 mL IM syringe ADM 0.5ML IM UTD active Not Available Not Available No t Available Flucelvax Quad (PF) 60 mcg (15 mcg x 4)/0.5 mL IM syringe 11/01 completed Not Available Not Available Not Available Vitals Date Recorded Body height Body mass index (BMI) Body weight Body temperature Heart rate Systolic blood pressure Diastolic blood pressure Provider Name and Address Organization Details Last Updated DateTime 170.18 cm 26.9 kg/m2 10474.8 9 g 97.6 [degF] 72 /min 110 mm[Hg] 78 mm[Hg] EULOGIO Ponce MD [employer] [facility] [employer] 4 15:49:41 Date Recorded Body height Body mass index (BMI) Body weight Heart rate Oxygen saturation Oxygen saturation in Arterial blood by Pulse oximetry Body temperature Systolic blood pressure Diastolic blood pressure Provider Name and Address Organization Details Last Updated DateTime 4 170.18 cm 26.6 kg/m2 44013.7 g 86 /min 97 % 97 % 97.6 [degF] 114 mm[Hg] 78 mm[Hg] Bisi Grant MA MD [employer] [facility] [employer] 4 15:32:26 Date Recorded Heart rate Respiratory rate Provider Oksana lexa and Address Organization Details Last Updated DateTime 09/08/2023 86 /min 15 /min Cesar Mensah MD [address], [facility] [address], [place], [address], [facility] [employer] 09/08/2023 15:54:46 Date Recorded Body height Body mass index (BMI) Body weight Body temperature Heart rate Oxygen saturation Oxygen saturation in Arterial blood by Pulse oximetry Systolic blood pressure Diastolic blood pressure Provider Name and Address Organization Details Last Updated DateTime 4 170.18 cm 26.6 kg/m2 35132.7 g 97.4 [degF] 78 /min 97 % 97 % 124 mm[Hg] 70 mm[Hg] Juan Carlos Ruiz CMA MD [employer] [facility] [employer] 4 11:29:29 Date Recorded Heart rate Respiratory rate Provider N lexa and Address Organization Details Last Updated DateTime 12/01/2023 78 /min 14 /min Cesar Mensah MD [address] [facility], [facility] [address], [place], [address], [facility] [employer] 12/01/2023 12:18:02 Date Recorded Body height Body mass index (BMI) Body weight Body temperature Heart rate Oxygen saturation Oxygen saturation in Arterial blood by Pulse oximetry Systolic blood pressure Diastolic blood pressure Provider Name and Address Organization Details Last Updated DateTime 4 170.18 cm 25.8 kg/m2 90170.7 4 g 97.5 [degF] 81 /min 98 % 98 % 118 mm[Hg] 76 mm[Hg] Janis Martin MA [employer] 4 11:03:48 Date Recorded Body height Body mass index (BMI) Body weight Body temperature Heart rate Oxygen saturation Oxygen saturation in Arterial blood by Pulse oximetry Pain severity - 0-10 verbal numeric rating [Score] - Reported Systolic blood pressure Diastolic blood pressure Provider Name and Address Organization Details Last Updated DateTime 5 170.18 cm 26.3 kg/m2 30297.5 2 g 98.1 [degF] 86 /min 98 % 98 % 0 106 mm[Hg] 62 mm[Hg] Janis Martin MA [employer] 5 14:16:44 Social History Question Answer Notes LastModified by Organization Details LastModified Time Tobacco Smoking Status Current Some Day Smoker socially on occasion Rarely Janis Martin MA [facility], [employer] [facility] [employer] 08/12/2024 14:18:47 Do You Have An Advance Directive? No MIGRATION.030 [id number] Information not available 08/28/2022 What Is Your Level Of Alcohol Consumption? Occasional MIGRATION.0301 [id number] Information not available 08/28/2022 What Is Your Level Of Caffeine Consumption? Heavy MIGRATION.0301 [id number] Information not available 08/28/2022 How Much Tobacco Do You Chew? None MIGRATION.030 [id number] Information not available 08/28/2022 In The 14 Days Before Symptom Onset, Have You Had Close Contact With A Laboratory-conf irmed COVID-19 While That Case Was Ill? No MIGRATION.030 [id number] Information not available 08/28/2022 In The 14 Days Before Symptom Onset, Have You Had Close Contact With A Person Who Is Under Investigation For COVID-19 While That Person Was Ill? No MIGRATION.0301 [id number] Information not available 08/28/2022 Are You Currently Employed? Yes Information not available 07/02/2023 What Type Of Diet Are You Following? REGULAR MIGRATION.030 [id number] Information not available 08/28/2022 Which Illicit Or Recreational Drugs Have You Used? Marijuana Occasional MIGRATION.030 [id number] Information not available 08/28/2022 What Is The Highest Grade Or Level Of School You Have Completed Or The Highest Degree You Have Received? [id number] MIGRATION.030 [id number] Information not available 08/28/2022 Do You Have An Electrostatic Air Filter? 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 Yes Information not available 2022 Have There Been Any Changes To Your Family Or Social Situation? No MIGRATION.030 [id number] Information not available 08/28/2022 What Is The Fluoride Status Of Your Home? Unknown MIGRATION.0301 [id number] Information not available 08/28/2022 Are There Any Guns Present In Your Home? Yes MIGRATION.0301 [id number] Information not available 08/28/2022 Do You Have A Humidifier? Yes Information not available 2022 Do You Use Insect Repellent Routinely? No MIGRATION.0301 155161 Information not available 08/28/2022 Where Do You Live? [place]LevelHouse MIGRATION.0301 617552 Information not available 08/28/2022 Do You Have A Medical Power Of Manager Proposal? No MIGRATION.0301 [id number] Information not available 08/28/2022 Do You Have Moisture Problems In Your Home? No Information not available 2022 What Was The Date Of Your Most Recent Tobacco Screening? 08/12/2024 Information not available 08/12/2024 Have You Ever Been Counseled For Unhealthy Alcohol Use? No MIGRATION.0301 [id number] Information not available 08/28/2022 Do You Have Any Pets? Yes MIGRATION.0301 750802 Information not available 08/28/2022 What Is Your Relationship Status? MIGRATION.0301 [id number] Information not available 08/28/2022 Do You Use Your Seat Belt Or Car Seat Routinely? Yes MIGRATION.0301 [id number] Information not available 08/28/2022 Do You Have Smoke And Carbon Monoxide Detectors In Your Home? Yes MIGRATION.0301 [id number] Information not available 08/28/2022 Are You Passively Exposed To Smoke? No MIGRATION.0301 [id number] Information not available 08/28/2022 Are There Any Smokers In Your House? No MIGRATION.0301 [id number] Information not available 08/28/2022 How Much Tobacco Do You Smoke? No Smoke Socially Only On Occasion Information not available 01/15/2024 What Types Of Sporting Activities Do You Participate In? None MIGRATION.0301 231617 Information not available 08/28/2022 Do You Feel Stressed (tense, Restless, Nervous, Or Anxious, Or Unable To Sleep At Night)? [id number] MIGRATION.0301 [id number] Information not available 08/28/2022 Do You Use Any Illicit Or Recreational Drugs? Yes MIGRATION.0301 181738 Information not available 08/28/2022 Do You Use Sunscreen Routinely? No MIGRATION.0301 [id number] Information not available 08/28/2022 Have You Recently Traveled Abroad? No Information not available 07/02/2023 Have You Used IV Drugs? No MIGRATION.0301 [id number] Information not available 08/28/2022 Do You Have Any Dietary Restrictions? No MIGRATION.0301 494679 Information not available 08/28/2022 Do You Or Have You Ever Used Any Other Forms Of Tobacco Or Nicotine? No MIGRATION.0301 110305 Information not available 08/28/2022 Sex: Male Functional Status Question Answer Note LastModified by Organizat ion Details LastModified Time What is your exercise level? Heavy MIGRATION.[id number] Information not available 08/28/2022 Mental Status None recorded. Family History Relationship Description Onset Age of this Age Resolved Age Notes LastModified by Organization Details LastModified Time Paternal Grandmother Carcinoma in situ of breast MIGRATION.958 [id number] Not available 08/28/2022 03:14:42 Paternal Aunt Lupus erythematosu s MIGRATION.898 [id number] Not available 08/28/2022 03:14:42 Maternal Grandfather Myocardial infarction [email or web address] Not available 09/19 12:46:08 Father Asthma [email or web address] Not available 13:02:27 Father Leukemia 62 Not availabl e 07/02/2023 15:47:30 Medical History Condition Response NERVE DISEASE N BLINDNESS N RHEUMATIC FEVER N KIDNEY STONES N BLADDER PROBLEMS N MRSA N OTHER # 1 N POLIO N LUNG DISEASE/DISORDER N RADIATION / CHEMOTHERAPY N COPD N Other # 2 N BLOOD DISEASES N EAR OR HEARING PROBLEMS N MUMPS N BOWEL PROBLEMS N DEPRESSION (INCLUDING POST ) N STROKE/TIA N ULCERS N BENIGN PROSTATIC HYPERPLASIA N MEASLES N MYOCARDIAL INFARCTION N OBESITY N GERD/NAUSEA N ANEURYSM N URINARY/BLADDER/KIDNEY PROBLEMS N CORONARY ARTERY DISEASE (CAD) N ADDICTION CONCERNS N ENDOMETRIOSIS N Impotence N USE OF BLOOD THINNERS N SKIN PROBLEMS N GASTROINTESTINAL DISORDER N PERIPHERAL VASCULAR DISEASE N MUSCLE,JOINT OR BONE PROBLEMS N GASTROINTESTINAL BLEEDING N BLOOD CLOTS N ASTHMA N CATARACTS N ERECTILE DYSFUNCTION N VARICOSITIES N GI PROBLEMS N Low Testosterone N INFERTILITY N AIDS/HIV N CHEMOTHERAPY / RADIATION N LIVER DISEASE N MALE HYPOGONADISM N HYPERTENSION N Deficiency N TOURETTE'S N ANXIETY DISORDER N BLOOD TRANSFUSION N ANEMIA/BLOOD DISORDER N CHRONIC EAR INFECTIONS N BRONCHITIS N TUBERCULOSIS N GLAUCOMA N FOOT PROBLEM N DIVERTICULITIS N SLEEP APNEA N CHICKENPOX N INFECTIOUS DISEASE N HEART ARRHYTHMIA N PROSTATE N INSOMNIA N HIGH CHOLESTEROL / HYPERLIPIDEMIA N HYPERTHYROIDISM N EYE PROBLEMS N EDEMA N CHRONIC PAIN SYNDROME N HYPOTHYROIDISM N CAROTID BLOCKAGE N CONSTIPATION N BACK / NECK PROBLEMS N HAVE YOU BEEN HOSPITALIZED OR SEEN IN [place] IN THE PAST YEAR ? N ATHEROSCLEROSIS N BREAST PROBLEMS N DIALYSIS N ECZEMA N OSTEOPOROSIS N ARTHRITIS N NO SIGNIFICANT PAST MEDICAL HISTORY N APPENDICITIS N DIABETES, TYPE N BAD TEETH N ENT N HEARTBURN / REFLUX N AUTISM SPECTRUM DISORDER (ASD) N HEPATITIS / LIVER DISEASE N GOUT N SLEEP DISORDER N ALZHEIMER'S DISEASE N Brain Problems N HERPES N DEMENTIA N HEADACHES/MIGRAINES N SEIZURES/EPILEPSY N VASCULAR DISEASE N PACEMAKER N Blood Disorder N DIZZINESS N HEART DISEASE/HEART PROBLEMS N KIDNEY DISEASE N MULTIPLE SCLEROSIS N CARDIAC ARRHYTHMIA N CANCER: SPECIFY N ATRIAL FIBRILLATION N Gall Stones N PULMONARY EMBOLISM N AUTOIMMUNE DISEASE N Immunizations Vaccine Type Date Status Note Provider Nam e and Address Organization Details Recorded Time COVID-19, mRNA, LNP-S, PF, 30 mcg/0.3 mL dose, estrellita-sucrose 3 completed Anjana Hawkins RMA null, [facility] 07/02/2023 15:46:46 Influenza, split virus, quadrivalent, PF 3 completed Anjana Hawkins RMA null, [facility] 07/02/2023 15:47:05 Influenza, MDCK, trivalent, PF 4 completed Anjana Hawkins RMA null, [facility] 06/28/2024 17:27:40 SARS-COV-2 (COVID-19) vaccine, UNSPECIFIED 1 completed Not Available [facility] 02/14/2023 14:24:08 SARS-COV-2 (COVID-19) vaccine, UNSPECIFIED 1 completed Not Available [facility] 02/14/2023 14:24:08 Influenza, split virus, quadrivalent, preservative 9 completed Not Available [facility] 02/14/2023 14:24:08 COVID-19, mRNA, LNP-S, PF, 30 mcg/0.3 mL dose 1 completed Not Available [facility] 02/14/2023 14:24:08 Influenza, split virus, trivalent, preservative 1 completed Not Available [facility] 02/14/2023 14:24:08 Tdap 7 completed Not Available [facility] 02/14/2023 14:24:08 Influenza, split virus, quadrivalent, PF 2 completed Not Available [facility] 02/14/2023 14:24:08 Influenza, split virus, quadrivalent, PF 8 completed Not Available [facility] 02/14/2023 14:24:08 Past Encounters Encounter ID Performer Location Encounter Start Date Encounter Closed Date Diagnosis/Indication Diagnosis SNOMED-CT Code Diagnosis ICD10 Code Diagnosis Note [id number] [facility] [place] [address] [place] [address] 09/28/2020 00:00:00 09/28/2020 15:09:04 [id number] [facility] [place] [address] [place] [address] 10/12/2020 00:00:00 10/12/2020 14:30:30 [id number] [facility] [place] [address] [facility] [address] [place] [address] 11/01/2020 00:00:00 11/23/2020 14:13:31 [id number] [facility] [place] [address] [place] [address] 02/08/2021 00:00:00 02/08/2021 14:22:20 [id number] [facility] [place] [address] [place] [address] 03/01/2021 00:00:00 03/01/2021 14:59:41 [id number] [facility] [place] [address] [facility] [address] [place] [address] 03/06/2021 00:00:00 03/06/2021 11:32:51 [id number] [facility] [place] [address] [place] [address] 04/10/2021 00:00:00 04/10/2021 15:45:57 [id number] [facility] [place] [address] [place] [address] 05/10/2021 00:00:00 05/10/2021 11:31:51 [id number] [facility] [place] [address] [facility] [address] [place] [address] 07/19/2021 00:00:00 07/19/2021 10:40:26 [id number] [facility] [address] [facility] [address] [place] [address] 12/25/2021 00:00:00 12/25/2021 17:21:19 [id number] [facility] [place] [address] [place] [address] 01/15/2022 00:00:00 01/15/2022 15:46:34 [id number] [facility] [place] [address] [place] [address] 04/02/2022 00:00:00 04/02/2022 15:34:22 [id number] [facility] [address] [facility] [address] [place] [address] 04/25/2022 00:00:00 05/06/2022 11:46:52 [id number] [facility] [place] [address] [place] [address] 06/20/2022 00:00:00 06/20/2022 13:19:17 [id number] [facility] [place] [address] [place] [address] 07/16/2022 00:00:00 07/16/2022 15:17:06 [id number] [facility] [address] [address] 08/06/2022 00:00:00 08/06/2022 10:12:49 [id number] [facility] [address] [place] [address] , [facility] [place] [address] 08/12/2022 00:00:00 08/12/2022 15:19:55 [id number] [facility] [address] [address] 08/27/2022 00:00:00 08/27/2022 09:36:19 [id number] [facility] [address] [place] [address] 2022 11:51:16 09/20/2022 08:32:25 Dyspnea on exertion 56914649 R06.09 R05.9 T78.40XA D89.9 [id number] Cesar Mensah MD [facility] [address] 10/16/2022 12:24:07 10/16/2022 14:03:41 Mild persistent asthma 891243785 J45.30 [id number] Honorio Gonzales MD [facility] [place] [address] [place] [address] 11/28/2022 12:24:45 11/28/2022 13:17:05 Pain of right shoulder joint 9977496290 0227362 M25.511 Lateral ep icondylitis of left humerus 1307256929 46857 M77.12 Lateral ep icondylitis of right humerus 4906042599 97071 M77.11 Tendinitis of right rotator cuff 0106360466 [id number] M67.813 [id number] Cesar Mensah MD [facility] [address] [address] 01/09/2023 11:28:14 01/10/2023 08:02:58 Mild persistent asthma 042398219 J45.30 Sleep apnea 74274042 G47 .30 G47.33 G47.36 G47.61 [id number] Justino mauricio MD [facility] [place] [address] [place] [address] 02/10/2023 15:28:05 02/10/2023 16:27:15 Screening - NAD 103843587 Z13.9 UTD on yearly flu shotUTD tdap 04/22/2017 UTD on COVID 19 vaccine RTC in 6 monthsdo labsER if worse, he did verbalize his understand ing of the above. Hyperlipidemia 03323547 E78.5 On rosuvastat in 20mg dailyGet labs Insomnia 943125964 G47.0 0 On zolpidemDo es well Asthma 204236393 J45.90 9 On albuterolO n flonase Pain of left wrist 55256 56996 63722 M25.532 No complaints today for this 02/10/2023 Lateral ep icondylitis of right humerus 1497397109 [address] Gonzales 11/28/2022 Lateral ep icondylitis of left humerus 0254140633 [address] Gonzales 11/28/2022 Low back pain 501927091 M54.50 Does well now Obstructiv e sleep apnea syndrome 48608806 G47.33 S/p sleep studyDr Makenna apt on 02/11/2023 Pain of ri ght shoulder joint 4799778438 2949546 M25.511 Dr Gonzales 11/28/2022 Moderate r ecurrent major depression 04401421 F33.1 On sertraline 25mg dailyDoes wellNot suicidal or homicidal Hyperglycemia 12342709 R 73.9 Not on any medsGet labs Multiple joint pain 3567 8005 M25.50 Get labs done COVID-19 191421300 U07.1 2 weeks ago, does well, but still not able to smell [id number] Cesar Mensah MD [facility] [address] [address] 02/11/2023 11:58:08 02/12/2023 08:23:02 Sleep apnea 31647744 G47.30 G47.33 G47.36 G47.61 Mild persi stent asthma 154796016 J45.30 [id number] Justino mauricio MD [facility] [place] [address] [facility] [place] [address] 07/02/2023 15:26:45 07/02/2023 16:15:26 Screening - NAD 728628114 Z13.9 UTD on yearly flu shotUTD tdap 04/22/2017 UTD on COVID 19 vaccine RTC in 6 monthsdo labsER if worse, he did verbalize his understand ing of the above. Hyperlipidemia 50748061 E78.5 On rosuvastat in 20mg dailyGet labs Insomnia 130666795 G47.0 0 On zolpidem, renewed 07/02/2022 Does well Asthma 358138173 J45.90 9 On albuterolO n flonaseGet on zyrtec as this season the allergies have worsened Pain of left wrist 56030 33267 24000 M25.532 No complaints today for this 02/10/2023 Lateral ep icondylitis of right humerus 3776646843 [address] Gonzales 11/28/2022 Lateral ep icondylitis of left humerus 6178427690 [address] Gonzales 11/28/2022 Low back pain 055106600 M54.50 Does well now Obstructiv e sleep apnea syndrome 81982513 G47.33 S/p sleep studyDr Makenna apt on 02/11/2023 To get oral device see Dr Mensah case 02/20/2023 Pain of ri ght shoulder joint 6304276177 1112577 M25.511 Dr Gonzales 11/28/2022 Moderate r ecurrent major depression 47516966 F33.1 On sertraline 25mg dailyDoes wellNot suicidal or homicidal Hyperglycemia 35675374 R 73.9 Not on any medsGet labs Multiple joint pain 3567 8005 M25.50 All negative labs COVID-19 371450828 U07.1 2 weeks ago, does well, but still not able to smell OV 07/02/2022: Does well now [id number] Cesar Mensah MD [facility] [address] [address] 09/08/2023 14:57:09 09/09/2023 08:49:05 Obstructive sleep apnea syndrome 51977942 G47.33 Mild persi stent asthma [id number] J45.30 [id number] Cesar Mensah MD [facility] [address] [address] 12/01/2023 11:09:08 12/02/2023 08:58:12 Obstructive sleep apnea syndrome 42872907 G47.33 Mild persi stent asthma 925819675 J45.30 [id number] Justino mauricio MD [facility] [place] [address] [place] [address] 01/15/2024 10:54:52 01/15/2024 11:16:42 Screening - NAD 414381915 Z13.9 UTD on yearly flu shotUTD tdap 04/22/2017 UTD on COVID 19 vaccine RTC in 6 monthsdo labsER if worse, he did verbalize his understand ing of the above. Hyperlipidemia 35950780 E78.5 On rosuvastat in 20mg dailyGet labs Insomnia 754176447 G47.0 0 On zolpidemDo es well Asthma 183482207 J45.90 9 On albuterolO n flonaseGet on zyrtec as this season the allergies have worsened 12/01/2023 Dr Mensah, f/u in one year Pain of left wrist 64622 89551 52150 M25.532 No complaints today for this 02/10/2023 Lateral ep icondylitis of right humerus [id number] [address] Gonzales 11/28/2022 Lateral ep icondylitis of left humerus 8712871437 [address] Gonzales 11/28/2022 Low back pain 650760496 M54.50 Does well now Obstructiv e sleep apnea syndrome 41989171 G47.33 S/p sleep studyDr Makenna apt on 02/11/2023 To get oral device see Dr Mensah case 02/20/2023 Pain of ri ght shoulder joint [id number] 8336694 M25.511 Dr Gonzales 11/28/2022 Moderate r ecurrent major depression 29848176 F33.1 On sertraline 25mg daily, self stoppedDoe s wellNot suicidal or homicidal Hyperglycemia 35135102 R 73.9 Not on any medsGet labs Multiple joint pain 3567 8005 M25.50 All negative labs COVID-19 034833257 U07.1 2 weeks ago, does well, but still not able to smell OV 07/02/2022: Does well now [id number] Justino mauricio MD [facility] [place] [address] [place] [address] 08/12/2024 14:04:07 08/12/2024 14:50:02 Screening - NAD 484134215 Z13.9 UTD on yearly flu shotUTD tdap 04/22/2017 UTD on COVID 19 vaccine RTC in 6 monthsdo labsER if worse, he did verbalize his understand ing of the above. Hyperlipidemia 18183206 E78.5 On rosuvastat in 20mg dailyGet labs Insomnia 189544031 G47.0 0 On zolpidemDo es well Asthma 492279083 J45.90 9 On albuterolO n flonaseGet on zyrtec as this season the allergies have worsened 12/01/2023 Dr Mensah, f/u in one year Pain of left wrist 34561 85441 41614 M25.532 No complaints today for this 02/10/2023 Lateral ep icondylitis of right humerus 7230673384 [address] Gonzales 11/28/2022 Lateral ep icondylitis of left humerus 5525200730 [address] Gonzales 11/28/2022 Low back pain 529578055 M54.50 Does well now Obstructiv e sleep apnea syndrome 33481462 G47.33 S/p sleep studyDr Makenna apt on 02/11/2023 To get oral device see Dr Mensah case 02/20/2023 Pain of ri ght shoulder joint 7420292386 1073790 M25.511 Dr Gonzales 11/28/2022 Moderate r ecurrent major depression 79897445 F33.1 On sertraline 25mg daily, self stoppedDoe s wellNot suicidal or homicidal Hyperglycemia 46222862 R 73.9 Not on any medsGet labs Multiple joint pain 3567 8005 M25.50 All negative labs COVID-19 496016330 U07.1 2 weeks ago, does well, but still not able to smell OV 07/02/2022: Does well now Proteinuria 78291754 R80 .9 Get a referral to nephrology Health Concerns Section Related Observation LastModified by Organization Detfar[facility] ls LastModified Time None Recorded Concern Status LastModified by Organization Details LastModified Time None Recorded Advance Directives Directive N: Payers Encounter Date Sequence Insurance Name Policy Number Policy Dick Covered Member ID Dick Member ID Guarantor Name 07/02/2023 1 [employer] 112 Dagoberto Garcias [id number] Dagoberto Bochings 09/08/2023 1 [employer] 112 Dagoberto Garcias [id number] Dagoberto Bochings 12/01/2023 1 [place] 112 Dagoberto Bochings [id number] Dagoberto Bochings 01/15/2024 1 [place] 112 Dagoberto Garcias [id number] Dagoberto Bochings 08/12/2024 1 [employer] 112 Dagoberto Garcias [id number] Dagoberto Garcias Notes Date Note Type Note Provider Name and Address Organization Details Recorded Time 4 text/html 04/22/18Here to establish carePMD: Dr [place] in [place]. [place]Past hx:DepressionReviewed social, family and surgical historyHere to discuss his use of the meds and obtain some routine labsOV 09/30/17:Here as he is having some R shoulder pain since 2-3 days, was working out with dumbells and feels that this 'messed up the shoulder'He is R handedNo N/T notedPain in on top of the shoulder, hurts to move it no radiation OV 10/20/17:He is here for his 2 week apt, he states that he is doing well at this time and the shoulder is betterOV 12/09/17:Here for his apt for shoulder pain, he states that since the past week or so has L shoulder pain, no pain today, did have a pinched nerve pain, he is R HDNo recent trauma, no chronic traumaNo N/T or weakness OV 12/23/17:Here for his L shoulder painHe states that he is doing well, no N/T in the arm or forearmNormal gripIs eager to return to the gym OV 04/08/18:Again has L shoulder pain since about 2 weeksGradual in onsetNo N/TNo weakness in gripHe did do lifting at the gym OV 04/23/18:Here for his 2 week apt for his shoulder pain OV 08/19/18:Here for his routine aptHe did do the labsHas multiple complaints todayHe does have elbow pain since 2 days, works out in gym, no N/T or weakness is RHDAlso has been using the proair, done with PFTs wants more meds as using the proair upto 2-5 times for SOB and some wheezing, continues to smokeAlso has sleeping issues unable to keep sleep, works in shifts, used to be on ambien, the trazodone did not work, wants ambienAlso still has diarrhea, no blood in stool, no UI or UTI sx, able to hydrate, was told to get a c-scope when he was admitted at [facility] and was told he may have colitis, he would like a referral to GI OV 12/01/18:Here for his routien aptFeels wellNeeds his ambien, and his advairAlso c/o premature ejaculation, is able to maintain and get an erection, no other urologoical complaints, no d/c from penis or UTI sx noted OV 06/17/19:Here for his routine aptHe is doing wellHe did do the labsHe states that he wants to get on a SSRI for 2 reasons, to help him with his premature ejaculation and also his anxietyHe did see the urologist OV 07/22/2019:Here to discuss the use of the zoloftHe also has seen PA for Dr Ca for his elbowsHe feels that the zoloft did not help much but he did tolerate the pill well OV 01/05/2020Here for his routine aptHe is doing wellHe did do the labsHe did also see ortho recently for his R elbow surgeryHe feels that the zoloft has worked but might now need more meds, not suicidal or homicidalHas not seen Dr Lara recently OV 11/01/2020:Here for his routine aptHe is doing wellHe did do the labsHe feels that the depression meds did not work so he stopped itHe has not yet seen Dr Lara, he denies any suicidal or homicidal ideation or attempts OV 03/06/2021:Here for his routine aptHe is doing wellHe did see Dr Gonzales the ortho for his aye elbow and wrist pain, last OV 03/01/2021He has done his labs OV 07/19/2021:Here for his routine aptHe is doing well, c/o UIHe did do the labsOV 12/25/2021:Here for his routine apt and wellness visitHe did do the labs on 12/07/2021 OV 04/25/2022:Here for his f/u apt, he did go to the ER for chest pain, now does well OV 08/12/2022:Here for his f/u apt, c/o LBP, no trauma, no N/T or weakness in the legs, no loss of bowel or bladder control, he does see his chiropractor and would like to get a xray OV 02/10/2023: Here for his f/u apt, he is doing well today, continues to have 'aches and pains' would like to get blood tests for this OV 07/02/2022: Here for his f/u apt, he is doing well today, he did do the labs, he also would like a refill on the ambien and also get a pill for allergies, states that this season, he has had allergies from his cat and dog at home Justino Dye MD [address] [place] [address], [place] [address], [place], [address], [place] [facility] [employer] [facility] [employer] 07/02/2023 16:49:40 4 text/html Primary care/Referring provider: Justino Dye MD Patient is here to go over his asthma management. Initial development of shortness of breath: 2010Duration of shortness of breath: 13 yearsCondition of shortness of breath: stableTiming of shortness of breath: noneFrequency: up to 1 time a weekLimits activities: yesAggravating factors: walking, lifting weights, chemicalsAlleviating factors: rest Modified [employer] (mMRC) Dyspnea Scale - Grade 1Grade 0 I only get breathless with strenuous exercise .Grade 1 I get short of breath when hurrying on the level or walking up a slight hill .Grade 2 I walk slower than people of the same age on the level because of breathlessness or have to stop for breath when walking at my own pace on the level .Grade 3 I stop for breath after walking about 100 yards or after a few minutes on the level .Grade 4 I am too breathless to leave the house or I am breathless when dressing . Treatment history: Montelukast 10 mg daily 2016 only Albuterol HFA as needed, less than once a week Wixela Inhub or Advair Diskus 100/50 mcg 1 puff BID 2018 onlyBreo Ellipta 100/25 mcg 1 inhalation daily since 09/2022 Patient's personal best peak flow remains at 680 L/min. Other symptoms:Drooling: noDysarthria: noNeck pain: noOdynophagia: noDysphagia: noWeak mastication: noFacial weakness: noNasal speech: noProtruding tongue: noProductive cough: noWheezing: yesChest tightness: yesOrthopnea: noFrequent throat clearing or swallowing: noPalpitations: noHeartburn: noEdema: no Environmental exposures:Nicotine smoke: 1 ppd 4002-3420, 07/29 ppd 2008-presentPaint: noDye: noDust mites: yesMold: noDamp basement: noWood burning stove: noAnimal dander: cat and dogCockroaches: noPollen: yesArsenic: noAsbestos: noBeryllium: noCadmium: noChromium: yesCoal smoke: noDiesel fumes: noNickel: noSilica: yesSoot: no The patient works from 5 am to 5 pm and sleeps from 9:30 pm to 4:45 am and wakes up without an alarm. The patient works from 5 pm to 5 am and sleeps from 7 am to 1 pm and wakes up without an alarm. During the [facility] home sleep study on 02/03/23, AHI = 13. The patient decided to go with MAD instead of CPAP therapy. He started this in 04/2023. Snoring: heavy, since , waking myself upSnorting: yesChoking: noCoughing: noGasping: yesGagging: yesSighing: yesWitnessed apnea: yesTwitching or jerking of leg(s), arm(s), body, head: yesTeeth grinding: noTeeth clenching: noSleeptalking: yesSleepwalking: noSleep crying: noBedwetting: noTongue/lip/gum/cheek biting: noSleeping with open mouth: yesSleep paralysis: noHypnagogic hallucinations: noHypnopompic hallucinations: noVivid dreams: noDifficulty with sleep onset: yesDifficulty with sleep maintenance: yesSleep interruptions: nocturia x 1Patient wakes up with: fatigue, mobility impairmentDaytime cataplexy: noMorning hypersomnolence: yesAfternoon hypersomnolence: yesCaffeine sources in diet: coffee 1 cup per day, tea 1 cup per day, soda 1 can per week, chocolate 1 candy bar per month Associated medical and psychiatric conditions:Congestive heart failure: noCoronary artery disease: noMyocardial infarction: noHypertension: noStroke: noBronchial asthma: noChronic obstructive pulmonary disease: noDepression: yesBipolar disorder: noAnxiety: yesPanic disorder: noPosttraumatic stress disorder: noAttention deficit and hyperactivity disorder: noObsessive Compulsive disorder: noSchizophrenia: noSchizoaffective disorder: noPersonality disorder: noChronic analgesic use: ibuprofenChronic sedative/hypnotic use: zolpidem EPWORTH SLEEPINESS SCALE (ESS) CHANCE OF DOZING SCORE0 = would never doze1 = slight chance of dozing2 = moderate chance of dozing3 = high chance of dozing SITUATION AND CHANCE OF DOZINGSitting and reading - 1Watching television - 1Sitting inactive in a public place (e.g. a theater or meeting) - 0As a passenger in a car for an hour without a break - 1Lying down to rest in the afternoon when circumstances permit - 2Sitting and talking to someone - 0Sitting quietly after lunch without alcohol - 0In a car, while stopped for a few minutes in the traffic - 0TOTAL SCORE 5Subjectively, patient has a slight chance of dozing. Cesar Mensah MD [address] [place] [address], [id number], [facility] 09/08/2023 15:58:27 4 text/html Primary care/Referring provider: Justino Dye MD Patient is here to go over his asthma management. Initial development of shortness of breath: 2011Duration of shortness of breath: 13 yearsCondition of shortness of breath: stableTiming of shortness of breath: noneFrequency: up to 1 time a weekLimits activities: yesAggravating factors: walking, lifting weights, chemicalsAlleviating factors: rest Modified [employer] (mMRC) Dyspnea Scale - Grade 1Grade 0 I only get breathless with strenuous exercise .Grade 1 I get short of breath when hurrying on the level or walking up a slight hill .Grade 2 I walk slower than people of the same age on the level because of breathlessness or have to stop for breath when walking at my own pace on the level .Grade 3 I stop for breath after walking about 100 yards or after a few minutes on the level .Grade 4 I am too breathless to leave the house or I am breathless when dressing . Treatment history: Montelukast 10 mg daily 2016 only Albuterol HFA as needed, less than once a week Wixela Inhub or Advair Diskus 100/50 mcg 1 puff BID 2018 onlyBreo Ellipta 100/25 mcg 1 inhalation daily since 09/2022 Patient's personal best peak flow remains at 680 L/min. Other symptoms:Drooling: noDysarthria: noNeck pain: noOdynophagia: noDysphagia: noWeak mastication: noFacial weakness: noNasal speech: noProtruding tongue: noProductive cough: noWheezing: yesChest tightness: yesOrthopnea: noFrequent throat clearing or swallowing: noPalpitations: noHeartburn: noEdema: no Environmental exposures:Nicotine smoke: 1 ppd 7966-9783, 07/29 ppd 2008-presentPaint: noDye: noDust mites: yesMold: noDamp basement: noWood burning stove: noAnimal dander: cat and dogCockroaches: noPollen: yesArsenic: noAsbestos: noBeryllium: noCadmium: noChromium: yesCoal smoke: noDiesel fumes: noNickel: noSilica: yesSoot: no The patient works from 5 am to 5 pm and sleeps from 9:30 pm to 4:45 am and wakes up without an alarm. The patient works from 5 pm to 5 am and sleeps from 7 am to 1 pm and wakes up without an alarm. During the [facility] home sleep study on 02/03/23, AHI = 13. The patient decided to go with MAD instead of CPAP therapy. He started this in 04/2023. Snoring: heavy, since , waking myself upSnorting: yesChoking: noCoughing: noGasping: yesGagging: yesSighing: yesWitnessed apnea: yesTwitching or jerking of leg(s), arm(s), body, head: yesTeeth grinding: noTeeth clenching: noSleeptalking: yesSleepwalking: noSleep crying: noBedwetting: noTongue/lip/gum/cheek biting: noSleeping with open mouth: yesSleep paralysis: noHypnagogic hallucinations: noHypnopompic hallucinations: noVivid dreams: noDifficulty with sleep onset: yesDifficulty with sleep maintenance: yesSleep interruptions: nocturia x 1Patient wakes up with: fatigue, mobility impairmentDaytime cataplexy: noMorning hypersomnolence: yesAfternoon hypersomnolence: yesCaffeine sources in diet: coffee 1 cup per day, tea 1 cup per day, soda 1 can per week, chocolate 1 candy bar per month Associated medical and psychiatric conditions:Congestive heart failure: noCoronary artery disease: noMyocardial infarction: noHypertension: noStroke: noBronchial asthma: noChronic obstructive pulmonary disease: noDepression: yesBipolar disorder: noAnxiety: yesPanic disorder: noPosttraumatic stress disorder: noAttention deficit and hyperactivity disorder: noObsessive Compulsive disorder: noSchizophrenia: noSchizoaffective disorder: noPersonality disorder: noChronic analgesic use: ibuprofenChronic sedative/hypnotic use: zolpidem EPWORTH SLEEPINESS SCALE (ESS) CHANCE OF DOZING SCORE0 = would never doze1 = slight chance of dozing2 = moderate chance of dozing3 = high chance of dozing SITUATION AND CHANCE OF DOZINGSitting and reading - 1Watching television - 1Sitting inactive in a public place (e.g. a theater or meeting) - 1As a passenger in a car for an hour without a break - 1Lying down to rest in the afternoon when circumstances permit - 1Sitting and talking to someone - 0Sitting quietly after lunch without alcohol - 0In a car, while stopped for a few minutes in the traffic - 0TOTAL SCORE 5Subjectively, patient has a slight chance of dozing. Cesar Mensah MD [address] [facility], [address], [place], [address], [place] [facility] [employer] 12/01/2023 16:58:45 4 text/html 04/22/18Here to establish carePMD: Dr Rob[place] in [place]. [place]Past hx:DepressionReviewed social, family and surgical historyHere to discuss his use of the meds and obtain some routine labsOV 09/30/17:Here as he is having some R shoulder pain since 2-3 days, was working out with dumbells and feels that this 'messed up the shoulder'He is R handedNo N/T notedPain in on top of the shoulder, hurts to move it no radiation OV 10/20/17:He is here for his 2 week apt, he states that he is doing well at this time and the shoulder is betterOV 12/09/17:Here for his apt for shoulder pain, he states that since the past week or so has L shoulder pain, no pain today, did have a pinched nerve pain, he is R HDNo recent trauma, no chronic traumaNo N/T or weaknessOV 12/23/17:Here for his L shoulder painHe states that he is doing well, no N/T in the arm or forearmNormal gripIs eager to return to the gym OV 04/08/18:Again has L shoulder pain since about 2 weeksGradual in onsetNo N/TNo weakness in gripHe did do lifting at the gym OV 04/23/18:Here for his 2 week apt for his shoulder painOV 08/19/18:Here for his routine aptHe did do the labsHas multiple complaints todayHe does have elbow pain since 2 days, works out in gym, no N/T or weakness is RHDAlso has been using the proair, done with PFTs wants more meds as using the proair upto 2-5 times for SOB and some wheezing, continues to smokeAlso has sleeping issues unable to keep sleep, works in shifts, used to be on ambien, the trazodone did not work, wants Teo still has diarrhea, no blood in stool, no UI or UTI sx, able to hydrate, was told to get a c-scope when he was admitted at [facility] and was told he may have colitis, he would like a referral to GI OV 12/01/18:Here for his routien aptFeels wellNeeds his ambien, and his advairAlso c/o premature ejaculation, is able to maintain and get an erection, no other urologoical complaints, no d/c from penis or UTI sx notedOV 06/17/19:Here for his routine aptHe is doing wellHe did do the labsHe states that he wants to get on a SSRI for 2 reasons, to help him with his premature ejaculation and also his anxietyHe did see the urologistOV 07/22/2019:Here to discuss the use of the zoloftHe also has seen PA for Dr Ca for his elbowsHe feels that the zoloft did not help much but he did tolerate the pill wellOV 01/05/2020Here for his routine aptHe is doing wellHe did do the labsHe did also see ortho recently for his R elbow surgeryHe feels that the zoloft has worked but might now need more meds, not suicidal or homicidalHas not seen Dr Lara recently OV 11/01/2020:Here for his routine aptHe is doing wellHe did do the labsHe feels that the depression meds did not work so he stopped itHe has not yet seen Dr Lara, he denies any suicidal or homicidal ideation or attemptsOV 03/06/2021:Here for his routine aptHe is doing wellHe did see Dr Gonzales the ortho for his aye elbow and wrist pain, last OV 03/01/2021He has done his labsOV 07/19/2021:Here for his routine aptHe is doing well, c/o UIHe did do the labsOV 12/25/2021:Here for his routine apt and wellness visitHe did do the labs on 2OV 04/25/2022:Here for his f/u apt, he did go to the ER for chest pain, now does wellOV 08/12/2022:Here for his f/u apt, c/o LBP, no trauma, no N/T or weakness in the legs, no loss of bowel or bladder control, he does see his chiropractor and would like to get a xray OV 02/10/2023: Here for his f/u apt, he is doing well today, continues to have 'aches and pains' would like to get blood tests for this OV 07/02/2022: Here for his f/u apt, he is doing well today, he did do the labs, he also would like a refill on the ambien and also get a pill for allergies, states that this season, he has had allergies from his cat and dog at home OV 01/15/2024: Here for his routine apt, he is doing well today, he did do the labs on 01/09/2024 Justino Dye MD [address] [facility], [facility] [address], [place], [address], [facility] [employer] 01/15/2024 18:02:27 5 text/html 04/22/18Here to establish carePMD: Dr Robles in [place]. [facility] hx:DepressionReviewed social, family and surgical historyHere to discuss his use of the meds and obtain some routine labsOV 09/30/17:Here as he is having some R shoulder pain since 2-3 days, was working out with dumbells and feels that this 'messed up the shoulder'He is R handedNo N/T notedPain in on top of the shoulder, hurts to move it no radiation OV 10/20/17:He is here for his 2 week apt, he states that he is doing well at this time and the shoulder is betterOV 12/09/17:Here for his apt for shoulder pain, he states that since the past week or so has L shoulder pain, no pain today, did have a pinched nerve pain, he is R HDNo recent trauma, no chronic traumaNo N/T or weaknessOV 12/23/17:Here for his L shoulder painHe states that he is doing well, no N/T in the arm or forearmNormal gripIs eager to return to the gym OV 04/08/18:Again has L shoulder pain since about 2 weeksGradual in onsetNo N/TNo weakness in gripHe did do lifting at the gym OV 04/23/18:Here for his 2 week apt for his shoulder painOV 08/19/18:Here for his routine aptHe did do the labsHas multiple complaints todayHe does have elbow pain since 2 days, works out in gym, no N/T or weakness is RHDAlso has been using the proair, done with PFTs wants more meds as using the proair upto 2-5 times for SOB and some wheezing, continues to smokeAlso has sleeping issues unable to keep sleep, works in shifts, used to be on ambien, the trazodone did not work, wants ambienAlso still has diarrhea, no blood in stool, no UI or UTI sx, able to hydrate, was told to get a c-scope when he was admitted at [facility] and was told he may have colitis, he would like a referral to GI OV 12/01/18:Here for his routien aptFeels wellNeeds his ambien, and his advairAlso c/o premature ejaculation, is able to maintain and get an erection, no other urologoical complaints, no d/c from penis or UTI sx notedOV 06/17/19:Here for his routine aptHe is doing wellHe did do the labsHe states that he wants to get on a SSRI for 2 reasons, to help him with his premature ejaculation and also his anxietyHe did see the urologistOV 07/22/2019:Here to discuss the use of the zoloftHe also has seen PA for Dr Ca for his elbowsHe feels that the zoloft did not help much but he did tolerate the pill wellOV 01/05/2020Here for his routine aptHe is doing wellHe did do the labsHe did also see ortho recently for his R elbow surgeryHe feels that the zoloft has worked but might now need more meds, not suicidal or homicidalHas not seen Dr Lara recently OV 11/01/2020:Here for his routine aptHe is doing wellHe did do the labsHe feels that the depression meds did not work so he stopped itHe has not yet seen Dr Lara, he denies any suicidal or homicidal ideation or attemptsOV 03/06/2021:Here for his routine aptHe is doing wellHe did see Dr Gonzales the ortho for his aye elbow and wrist pain, last OV 03/01/2021He has done his labsOV 07/19/2021:Here for his routine aptHe is doing well, c/o UIHe did do the labsOV 12/25/2021:Here for his routine apt and wellness visitHe did do the labs on 2OV 04/25/2022:Here for his f/u apt, he did go to the ER for chest pain, now does wellOV 08/12/2022:Here for his f/u apt, c/o LBP, no trauma, no N/T or weakness in the legs, no loss of bowel or bladder control, he does see his chiropractor and would like to get a xray OV 02/10/2023: Here for his f/u apt, he is doing well today, continues to have 'aches and pains' would like to get blood tests for this OV 07/02/2022: Here for his f/u apt, he is doing well today, he did do the labs, he also would like a refill on the ambien and also get a pill for allergies, states that this season, he has had allergies from his cat and dog at home OV 01/15/2024: Here for his routine apt, he is doing well today, he did do the labs on 01/09/2024 OV 08/12/2024: Here for his f/u apt, he is doing well, he did do the labs, would like his ambien refilled Justino Dye MD [address], [address], [place], [address], [place] - [facility] 08/12/2024 14:56:00
[2024-09-08 14:09] LABS: Alanine Aminotransferase 30 U/L (6-50); Albumin Level 4.3 g/dL (3.5-5.1); Alkaline Phosphatase 63 U/L (38-126); Anion Gap 10 mmol/L (4-12); Aspartate Amino Transferase 24 U/L (17-59); Bilirubin,Total 1.2 mg/dL (0.2-1.3); Blood Urea Nitrogen 13 mg/dL (9-20); Carbon Dioxide 23 mmol/L (22-30); Chloride 105 mmol/L (98-107); Estimated CRCL calculation 102 ml/min; Estimated Glomerular Filt Rate > 60; Glucose 99 mg/dL (65-110); Lipase 35 U/L (23-300); Sodium 138 mmol/L (137-145)
[2024-09-08 14:20] LABS: Troponin I < 0.012 ng/mL (0.000-0.034)
[2024-09-08 14:30] LABS: Basophils Percent Auto 0.4 % (0.2-1.2); Eosinophils Absolute Auto 0.1 K/mm3 (0-0.3); Eosinophils Percent Auto 0.7 % (0-4.4); Hematocrit 37.2 % (42.0-52.0); Hemoglobin 12.5 g/dL (14.0-18.0); Immature Granulocyte Absolute 0.04 K/mm3 (0.00-0.031); Immature Granulocyte Percent A 0.5 % (0-0.5); Lymphocytes Absolute Auto 1.83 K/mm3 (0.9-3.2); Mean Corpuscular HGB Conc 33.6 g/dl (32-36); Mean Corpuscular Hemoglobin 29.5 pg (26-34); Mean Corpuscular Volume 87.7 fl (80-100); Mean Platelet Volume 9.4 fl (7.4-10.4); Monocytes Absolute Auto 0.6 K/mm3 (0.1-0.6); Monocytes Percent Auto 8.2 % (2.6-8.5); Neutrophils Absolute Auto 4.8 K/mm3 (1.3-6.7); Neutrophils Percent Auto 65.2 % (45.5-73.1); Platelet Count Result 216 k/mm3 (150-375); Red Blood Count 4.24 M/mm3 (4.6-6.20); Red Cell Distribution Width 12.5 % (11.5-14.5); White Blood Count 7.3 K/mm3 (4.5-10.0)
--- OUTSIDE RECORDS SUMMARY | 2024-09-08 14:38 | XMS_ITS | Clinical Summary ---
Author Organization [facility] Address [address] [place] [id number] Care Team Providers Care Silviculture Forester Name Role Phone Unavailable Primary Care Provider Unavailabl e Social History Tobacco Use Types Packs/Day Years Used Date Smoking Tobacco: Never Assessed Sex and Gender Information Value Date Recorded Sex Assigned at Not on file Legal Sex Male 6:44 PM CDT Gender Identity Not on file Sexual Orientation Not on file Plan of Treatment Health Maintenance Due Date Last Done Comments Annual Physical 09/20/1983 Hepatitis C 1998 DTaP, Tdap and Td Vaccines ( 1 - Tdap) 09/20/1999 Hepatitis B Vaccines (1 of 3 - 19+ 3-dose series) 09/20/1999 COVID-19 Vaccine (2023-2 5 season) 2024 Influenza Adult (#1) 2024 HPV Vaccines Aged Out No longer eligi ble based on patient's age to complete this topic Meningococcal B Vaccine Aged Out No l onger eligible based on patient's age to complete this topic Meningococcal Vaccine Aged Out No tracee uli eligible based on patient's age to complete this topic Pneumococcal Vaccine: Pediat rics (0 to 5 Years) and At-Risk Patients (6 to 64 Years) Aged Out No longer eligible b ased on patient's age to complete this topic RSV Immunizations Under 20 Months Aged Out No longer eligible based on patient's age to complete this topic
--- OUTSIDE RECORDS SUMMARY | 2024-09-08 14:38 | XMS_ITS | Referral Summary ---
Author Organization [facility] [employer] Address [address] [place] [address] Care Team Providers Care Director Of Development Name Role Phone Justino Dye MD Primary Care Provider Source Comments [facility] [employer],non-owned Affiliates and Associated Physician Practices is amultiple site organization consisting of ambulatory clinics and hospital sitesin [place], [place], [place] and [place]. This disclosure is being madepursuant to the Care Everywhere program and may not contain all information available regarding this patient. Last updated 18.[employer] Allergies No known active allergies Medications * [...] Comments Blood Pressure 136/78 08/06/2017 12:04 PM SERVICE ESTABLISHMENT ATTENDANT Pulse 118 08/06/2017 12:04 PM SERVICE ESTABLISHMENT ATTENDANT Temperature 38.1 C (100.5 F) 08/06/2017 12:04 PM SERVICE ESTABLISHMENT ATTENDANT Respiratory Rate 18 08/06/2017 12:04 PM SERVICE ESTABLISHMENT ATTENDANT Oxygen Saturation 96% 08/06/2017 12:04 PM SERVICE ESTABLISHMENT ATTENDANT Inhaled Oxygen Concentration - - Weight 68 kg (150 lb) 08/06/2017 12:04 PM SERVICE ESTABLISHMENT ATTENDANT Height 170.2 cm (5' 7 ) 08/06/2017 12:04 PM SERVICE ESTABLISHMENT ATTENDANT Body Mass Index 23.49 08/06/2017 12:04 PM SERVICE ESTABLISHMENT ATTENDANT Plan of Treatment Not on file Care Teams Director Of Development Relationship Specialty Start Date End Date Justino Dye MD [address] [facility] [address] [place] [address] PCP - General Internal Medicine 08/06/17
--- OUTSIDE RECORDS SUMMARY | 2024-09-08 14:38 | XMS_ITS | Patient Health Summary ---
Author Organization [facility] [employer] Address [address] [facility] [place] [address] Care Team Providers Care Hospitality Associate Name Role Phone Justino Dye MD Primary Care Provider Note from [facility],non-owned Affiliates and Associated Physician Practices is amultiple site organization consisting of ambulatory clinics and hospital sitesin [place], [place], [place] and [place]. This disclosure is being madepursuant to the Care Everywhere program and may not contain all information available regarding this patient. Last updated 18.[facility] [employer] Allergies No known active allergies Medications * [...] Comments Blood Pressure 136/78 08/06/2017 12:04 PM SOFTWARE LICENSING ANALYST Pulse 118 08/06/2017 12:04 PM SOFTWARE LICENSING ANALYST Temperature 38.1 C (100.5 F) 08/06/2017 12:04 PM SOFTWARE LICENSING ANALYST Respiratory Rate 18 08/06/2017 12:04 PM SOFTWARE LICENSING ANALYST Oxygen Saturation 96% 08/06/2017 12:04 PM SOFTWARE LICENSING ANALYST Inhaled Oxygen Concentration - - Weight 68 kg (150 lb) 08/06/2017 12:04 PM SOFTWARE LICENSING ANALYST Height 170.2 cm (5' 7 ) 08/06/2017 12:04 PM SOFTWARE LICENSING ANALYST Body Mass Index 23.49 08/06/2017 12:04 PM SOFTWARE LICENSING ANALYST Procedures * INFLUENZA A+B - POINT OF CARE (AMB)(Performed 08/06/2017) Performed for Influenza Results * (ABNORMAL) INFLUENZA A+B - POINT OF CARE (AMB) (08/06/2017) Influenza A Antigen Rapid Negative Negative Influenza B Antigen Rapid Positive(A) Negative Influenza Internal Control yes NEGATIVE - POSITIVE Influenza Lot Number [id number] Influenza Expiration Date 04/21/19 Other NASOPHARYNGEAL SWAB / Unknown 08/06/2017 Stephanie Mcgrath PRINCIPAL CLERK-BULK DELIVERY DRIVER LAB - POINT OF CA RE ORDERABLES Care Teams Hospitality Associate Relationship Specialty Start Date End Date Justino Dye MD [address] [address] PCP - General Internal Medicine 08/06/17
--- OUTSIDE RECORDS SUMMARY | 2024-09-08 14:38 | XMS_ITS | Clinical Summary ---
Author Organization [facility] [employer] Address [address] [place] [address] Care Team Providers Care Anesthetist Name Role Phone Justino Dye MD Primary Care Provider Source Comments [facility] [employer],non-owned Affiliates and Associated Physician Practices is amultiple site organization consisting of ambulatory clinics and hospital sitesin [place], [place], [place] and [place]. This disclosure is being madepursuant to the Care Everywhere program and may not contain all information available regarding this patient. 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 METER INSTALLER Pulse 118 08/06/2017 12:04 PM GAS METER INSTALLER Temperature 38.1 C (100.5 F) 08/06/2017 12:04 PM GAS METER INSTALLER Respiratory Rate 18 08/06/2017 12:04 PM GAS METER INSTALLER Oxygen Saturation 96% 08/06/2017 12:04 PM GAS METER INSTALLER Inhaled Oxygen Concentration - - Weight 68 kg (150 lb) 08/06/2017 12:04 PM GAS METER INSTALLER Height 170.2 cm (5' 7 ) 08/06/2017 12:04 PM GAS METER INSTALLER Body Mass Index 23.49 08/06/2017 12:04 PM GAS METER INSTALLER Plan of Treatment Health Maintenance Due Date [...] age to complete this topic Care Teams Anesthetist Relationship Specialty Start Date End Date Justino Dye MD [address] [facility] [address] [place] [address] PCP - General Internal Medicine 08/06/17
--- OUTSIDE RECORDS SUMMARY | 2024-09-08 14:38 | XMS_ITS ---
Author Organization [facility] Address [address] [place] [address] Care Team Providers Care Code Machine Operator Name Role Phone Fab Lovelacejit Unavailable [phone] PROBLEMS Problem Type ICD Code Onset Dates Problem Status W/U Status Risk SNOMED Code Notes Problem Chronic kidney disease, stage 1 (N18.1) Active confirmed Chronic kidney disease stage 1 (662105419) Problem Obstructive sleep apnea (adult) (pediatric) (G47.33) Active confirmed Obstructive sle ep apnea syndrome (disorder) (36274763) Problem Other proteinuria (R80.8) Active confirmed Proteinuria (23597707) Problem Hyperlipidemia, unspecified (E78.5) Active confirmed Hyperlipidemia (10937183) Problem Hyperglycemia, unspecified (R73.9) Active confirmed Hyperglycemia (22567781) Problem Asthma due to environmental allergies (J45.909) Active confirmed Asthma without status asthmaticus (42578256) Encounters Encounter Location Date Provider Diagnosis [facility] [address] [facility] [address] [place] [address] 08/27/2024 Juan Diego Lovelace Chronic kidney disease, [...] TREATMENT Next Appt Details Provider Name:Juan Diego Radu , 09/17/2024 03:30:00 PM, [address], [place], [place], [facility], Progress Notes * JEFFREY PICKERINGDOB:1980 (43 yo M)Acc No.[id number]:08/27/2024 Progress Notes Patient: JEFFREY PICKERING Provider: MD FAISAL, F.A.C.P, F.A.S.N. :1980 Age:43 Y Sex:Male Date:08/27/2024 Address:[facility] [place] [address] Subjective: * Chief Complaints: * * Medical History: Objective: Assessment: * Assessment: 1. Chronic kidney disease, stage 1 - N18.1 (Primary) 2. Obstructive sleep apnea (adult) (pediatric) - G47.33 3. Other proteinuria - R80.8 4. Hyperlipidemia, unspecified - E78.5 5. Hyperglycemia, unspecified - R73.9 6. Asthma due to environmental allergies - J45.909 Plan: * Treatment: * Billing Information: * Visit Code: 77661 Office Visit, New Pt., Level 5. * Procedure Codes: * Sign off status: Pending * Provider: MD FAISAL, Odilon.Elza.C.P, F.A.S.N. Date: 08/27/2024
--- NOTE | 2024-09-08 15:10 | ED_ITS ---
HPI - General Adult General Chief complaint: Abdominal Pain Stated complaint: epigastric pain x2d Time Seen by Provider: 09/08/24 12:56 History of Present Illness HPI narrative: This is a 43-year-old male presenting with 2 days of right upper quadrant pain. The patient localizes the pain to right over the costal margin. It is a squeezing pain. It is positional improves when he lays back. It does not hurt when you press on it. There are no associated symptoms such as fevers chills nausea vomiting diarrhea, relation to food intake, chest pain or difficulty breathing. Patient has recently had several new medical problems such as protein in his urine and elevated glucose that are making him distressed. Related Data Home Medications ?Medication ?Instructions ?Recorded ?Confirmed ?Last Taken ?Type trazodone 50 mg tablet mg 03/18/22 Unknown History zolpidem 10 mg tablet mg 03/18/22 Unknown History Allergies Allergy/AdvReac Type Severity Reaction Status Date / Time No Known Allergies Allergy Verified 09/08/24 12:40 [facility] Past Medical History Medical History Anxiety Asthma Hyperlipidemia Surgical History Surgical History History of open reduction and internal fixation (ORIF) procedure Right wrist History of shoulder surgery Social History Social History Smoking status: Current every day smoker Alcohol intake: current Gender identity (if verbalized by the patient): Male Exam 2 Narrative: APPEARANCE: Anxious appearing Head: atraumatic. EYES: EOMI, NOSE: Atraumatic NECK: Trachea midline RESPIRATORY: No increased rate of breathing clear to auscultation CARDIOVASCULAR: RRR, no peripheral edema ABDOMINAL: No overlying skin changes, no tenderness to palpation over the right costal margin, or with deep palpation of the abdomen. No guarding or rebound. No CVA tenderness. MUSCULOSKELETAl: No obvious deformities NEURO: Alert. Moving 4/4 extremities SKIN:: Warm, dry. Normal color PSYCHIATRIC: Normal affect Course Vital Signs Vital signs: Vital Signs Temperature 97.2 F L 09/08/24 12:41 Pulse Rate 76 09/08/24 12:41 Respiratory Rate 18 09/08/24 12:41 Blood Pressure 121/81 09/08/24 12:41 Pulse Oximetry 97 09/08/24 12:41 Temperature 97.2 F L 09/08/24 12:41 Pulse Rate 76 09/08/24 12:41 Respiratory Rate 18 09/08/24 12:41 Blood Pressure 121/81 09/08/24 12:41 Pulse Oximetry 97 09/08/24 12:41 Medical Decision Making MDM Narrative Medical decision making narrative: -Course: 43-year-old male presenting with localized pain over the right upper quadrant. Physical exam is unremarkable. Laboratory studies and a CT abdomen pelvis and chest x-ray did not find any causative findings. Results were discussed with the patient is comfortable following up his primary care physician for further management. Patient has been discharged with return precautions. -DDX includes but is not limited to: Gallbladder disease, MSK pain, gastritis, pneumonia -Co-morbidities complicating care: Anxiety, asthma, hyperlipidemia Vital Signs Vital Signs: Vital Signs Temperature 97.2 F L 09/08/24 12:41 Pulse Rate 76 09/08/24 12:41 Respiratory Rate 18 09/08/24 12:41 Blood Pressure 121/81 09/08/24 12:41 Pulse Oximetry 97 09/08/24 12:41 Temperature 97.2 F L 09/08/24 12:41 Pulse Rate 76 09/08/24 12:41 Respiratory Rate 18 09/08/24 12:41 Blood Pressure 121/81 09/08/24 12:41 Pulse Oximetry 97 09/08/24 12:41 Lab Data 09/08/24 14:26 09/08/24 13:48 Labs: Lab Results 09/08/24 09/08/24 Range/Units 13:48 14:26 WBC 7.3 (4.5-10.0) K/mm3 RBC 4.24 L (4.6-6.20) M/mm3 Hgb 12.5 L D (14.0-18.0) g/dL Hct 37.2 L (42.0-52.0) % MCV 87.7 (80-100) fl MCH 29.5 (26-34) pg MCHC 33.6 (32-36) g/dl RDW 12.5 (11.5-14.5) % Plt Count 216 (150-375) k/mm3 MPV 9.4 (7.4-10.4) fl Immature Gran % (Auto) 0.5 (0-0.5) % Neut % (Auto) 65.2 (45.5-73.1) % Lymph % (Auto) 25.0 (18.3-44.2) % [place] % (Auto) 8.2 (2.6-8.5) % Eos % (Auto) 0.7 (0-4.4) % Baso % (Auto) 0.4 (0.2-1.2) % Lymph # (Auto) 1.83 (0.9-3.2) K/mm3 [place] # (Auto) 0.6 (0.1-0.6) K/mm3 Eos # (Auto) 0.1 (0-0.3) K/mm3 Baso # (Auto) 0.0 (0.0-0.1) K/mm3 Abs Immat Gran (auto) 0.04 H (0.00-0.031) K/mm3 Absolute Neuts (auto) 4.8 (1.3-6.7) K/mm3 Absolute Nucleated RBC 0.000 (0.0-0.012) K/mm3 Nucleated RBC % 0.0 (0.0-0.2) % Sodium 138 (137-145) mmol/L Potassium 4.0 (3.4-5.0) mmol/L Chloride 105 (98-107) mmol/L Carbon Dioxide 23 (22-30) mmol/L Anion Gap 10 (4-12) mmol/L BUN 13 (9-20) mg/dL Creatinine 0.76 (0.7-1.3) mg/dL Estim Creat Clear Calc 102 ml/min Estimated GFR > 60 (59 - ) Glucose 99 (65-110) mg/dL Calcium 9.0 (8.4-10.2) mg/dL Total Bilirubin 1.2 (0.2-1.3) mg/dL AST 24 (17-59) U/L ALT 30 (6-50) U/L Alkaline Phosphatase 63 (38-126) U/L Troponin I < 0.012 (0.000-0.034) ng/mL Total Protein 7.0 (6.3-8.2) g/dL Albumin 4.3 (3.5-5.1) g/dL Lipase 35 (23-300) U/L Discharge Plan Discharge Clinical Impression: Abdominal pain Patient Disposition: Home, Self-Care Condition: Stable Instructions: Antibiotic Form, Abdominal Pain (ED) Additional Instructions: You were seen for abdominal pain today. We cannot find a definitive cause. Please use Motrin Tylenol for pain. Follow-up with your primary care physician. If you develop any new or worsening symptoms please return to a physician for further evaluation. Patient Language: Mongolian Prescriptions: New ibuprofen 800 mg tablet 800 mg PO TID PRN (Reason: pain) 7 Days Qty: 21 0RF acetaminophen 500 mg tablet 1,000 mg PO TID PRN (Reason: maria) 7 Days Qty: 42 0RF No Action doxycycline monohydrate 100 mg capsule 100 mg PO BID 7 Days Qty: 14 0RF hydrocodone-acetaminophen 5-325 mg tablet 1 tablet PO Q12H PRN (Reason: pain) Qty: 14 0RF trazodone 50 mg tablet zolpidem 10 mg tablet ibuprofen 600 mg tablet 600 mg PO TID PRN (Reason: pain) Qty: 14 0RF famotidine [Pepcid AC] 20 mg tablet 20 mg PO DAILY Qty: 14 0RF Follow-up/Referrals: Marnie,MD Justino [Primary Care Provider] -
[2024-09-08 15:30] VITALS: BP 122/86; PULSE 74; RESP 18; O2SAT 98
== END 2024-09-08 15:35 | disposition home or self-care (01) ==
PROVIDERS: Emergency Provider Emergency Medicine; PCP Internal Medicine
DX: R10.11 Right upper quadrant pain (principal); J45.909 Unspecified asthma, uncomplicated; E78.5 Hyperlipidemia, unspecified; F41.9 Anxiety disorder, unspecified; F17.200 Nicotine dependence, unspecified, uncomplicated; Z79.899 Other long term (current) drug therapy
CPT/HCPCS: 36415; 71045; 74177; 80053; 83690; 84484; 85025; 93005; 96360; 99284; J7030; Q9967